=== PATIENT | female | born 1985 | race Two or more races ===

== ENCOUNTER 2024-11-07 19:12 | Emergency (ER) | payer MEDICAID, SELFPAY ==
[2024-11-07 20:07] VITALS: BP 104/63; PULSE 112; RESP 20; TEMP 37.9; O2SAT 96
--- NOTE | 2024-11-07 20:23 | PD.EDURI ---
Upper Respiratory Inf. RME/HPI General Chief Complaint: Flu Like Symptoms Stated Complaint: Cough X 2 days, fever, 16 weeks OB Time Seen by Provider: 11/07/24 20:15 Source: patient Arrival date/time: 11/07/24 19:12 38-year-old female approximately 16 weeks G6, P4 presents emergency department complaining of cough, fever, body aches, and headache for 2 days. Patient denies any dysuria, vaginal bleeding, abdominal pain, abdominal cramping, or low back pain. Mode of arrival: ambulatory Limitations: no limitations Related Data Previous Rx's ?Medication ?Instructions ?Recorded docusate sodium 100 mg capsule 100 mg PO QDAY #7 caps 04/11/22 (Colace) acetaminophen 500 mg capsule 500 mg PO Q6H PRN pain #30 caps 11/07/24 Allergies Allergy/AdvReac Type Severity Reaction Status Date / Time No Known Allergies Allergy Verified 04/09/22 05:42 Review of Systems Review of Systems Systems Reviewed: All systems reviewed, normal except as documented Constitutional Constitutional: Reports system reviewed and no additional complaints, except as documented, Reports body ache(s), Denies chills, Reports fever(s) and Reports headache(s) Eyes Eyes: Reports system reviewed and no additional complaints, except as documented and Denies change in vision ENT Ears, Nose, Mouth, and Throat: Reports system reviewed and no additional complaints, except as documented, Denies disequilibrium, Denies dizziness, Reports headache(s), Denies sore throat and Denies vertigo Cardiovascular Cardiovascular: Reports system reviewed and no additional complaints, except as documented, Denies chest pain and Denies dyspnea Respiratory Respiratory: Reports system reviewed and no additional complaints, except as documented, Denies chest congestion, Reports cough and Denies dyspnea Gastrointestinal Gastrointestinal: Reports system reviewed and no additional complaints, except as documented, Denies abdominal pain, Denies nausea and Denies vomiting Musculoskeletal Musculoskeletal: Reports system reviewed and no additional complaints, except as documented, Denies abnormal gait and Denies arthralgias Integumentary/Breasts Skin/Breast: Reports system reviewed and no additional complaints, except as documented, Denies erythema, Denies rash and Denies wounds Neurologic Neurologic: Reports system reviewed and no additional complaints, except as documented, Denies abnormal gait, Denies disequilibrium, Denies dizziness, Reports headache(s) and Denies vertigo Past Medical History Past Medical History NEUROLOGIC: Negative Neurological Disorders or Seizures CARDIAC: Negative Cardiac Disorders or Congestive Heart Failure RESPIRATORY: Negative Chronic Obstructive Pulmonary Disease (COPD) GASTROINTESTINAL: Negative Gastrointestinal Disorders or Hepatitis GENITOURINARY: Negative Genitourinary Disorders or Renal Disease REPRODUCTIVE: Positive Genital Herpes and Previous Pregnancies; Negative Endometriosis, Pelvic Inflammatory Disease or Uterine Prolapse MUSCULOSKELETAL: Negative Musculoskeletal Disorders ENDOCRINE: Negative Endocrine Disorders, Diabetes Mellitus Type 1 or Diabetes Mellitus Type 2 HEMATOLOGIC: Positive Blood Disorders and Anemia OTHER HISTORY: Positive Hospitalization and Blood Transfusions; Negative Autoimmune Disease, Down Syndrome, Developmental Delay, Shingles, Falls, Blood Transfusion Reaction, Anesthesia Reactions, Organ Transplant, Chemotherapy, Radiation Therapy, Hyperbaric Therapy, MRSA, VRSA, Vancomycin-Resistant Enterococci, Human Immunodeficiency Virus (HIV), Chicken Pox, Measles, Mumps, Rubella (Maori Measles), Pertussis, Clostridium Difficile or Cancer Family History FAMILY HISTORY: Positive Family Cardiac Disorders (mother- htn); Negative Family Psychiatric Problems, Family Respiratory Disorders, Family Gastrointestinal Problems, Family Cancer, Family Surgery or Family Anesthesia Reaction Surgical History SURGICAL: Negative Organ Transplant Social History SMOKING STATUS: Never smoker SECOND HAND EXPOSURE: Yes ED Exam General Limitations: Present no limitations General appearance: Present alert and in no apparent distress Head Head exam: Present atraumatic Eye Eye exam: Present normal appearance, PERRL and EOMI ENT ENT exam: Present normal exam, normal oropharynx and mucous membranes moist Neck Neck exam: Present normal inspection, full ROM and trachea midline Chest Chest inspection: Present normal inspection and symmetric chest wall rise Respiratory Respiratory exam: Present normal lung sounds bilaterally Cardiovascular Cardiovascular exam: Present regular rate, normal rhythm and normal heart sounds Abdominal Exam Abdominal exam: Present soft and normal bowel sounds Extremities Exam Extremities exam: Present normal inspection and full ROM Back Exam Back exam: Present normal inspection and full ROM Neurological Exam Neurological exam: Present alert, oriented X3 and CN II-XII intact Psychiatric Psychiatric exam: Present normal affect and normal mood Skin Skin exam: Present warm, dry, intact and normal color Course Quality Measures none Orders Category Date Time Status Acetaminophen Tab [Tylenol ES Tab] Med 11/07/24 20:24 Discontinued 1,000 mg PO X1 ONE Vital Signs Vital signs: Vital Signs Temperature 100.3 F 11/07/24 20:07 Pulse Rate 112 H 11/07/24 20:07 Respiratory Rate 20 11/07/24 20:07 Blood Pressure 104/63 11/07/24 20:07 Pulse Oximetry (%) 96 11/07/24 20:07 Oxygen Delivery Method Room Air 11/07/24 20:07 96% room air within normal limits Upper Respiratory Infection MDM Narrative MDM Narrative:: 38-year-old female approximately 16 weeks G6, P4 presents emergency department complaining of cough, fever, body aches, and headache for 2 days. Patient denies any dysuria, vaginal bleeding, abdominal pain, abdominal cramping, or low back pain. Patient appears nontoxic and is hemodynamically stable. No adventitious lung sounds on auscultation. Influenza positive. Patient instructed to drink plenty of fluids and get plenty of rest and take Tylenol as needed for fever or pain. Patient data External records reviewed:: [facility] previous records Clinical information provided by:: patient Social determinants that could affect healthcare access:: none Patient has the following chronic illnesses:: None How is presenting disease/condition affected by chronic disease/condition?: no chronic disease Evaluation data The following diagnostics were reviewed and interpreted by me:: lab results Lab and/or radiology exams considered but not ordered:: Ordered Interpretation Summary: Interpreted by me Medications / Prescriptions Medications or Prescriptions considered but not ordered:: Ordered Medication administrations:: Medication Administration History Discontinued Medications Acetaminophen (Acetaminophen 500 Mg Tablet) 1,000 mg PO X1 ONE Stop: 11/07/24 20:25 Last Admin: 11/07/24 20:28 Dose: 1,000 mg Documented By: KF Given Consultations Consultation(s) initiated? (list below): No Diagnosis Upper Respiratory Differential Diagnosis: upper respiratory infection, otitis media, sinusitis, viral infection, bronchitis, influenza and pharyngitis Most likely diagnosis given after review of the tests above:: Influenza Admission Indicated Admission indicated?: not indicated Admission Request Was there a request for admission?: No Disposition Plan Disposition Plan: Discharge Discharge Attestation Discharge Attestation: The patient and all family members were given an opportunity to ask questions and understood the discharge instructions. Discharge instructions specifically effects, indications for sooner follow up or return to the emergency department, and the expected course of current diagnosis. Patient condition: Stable Discharge Plan Plan Patient Disposition: HOME (Self Care) Disposition Comment: Stable Prescriptions/Referrals Prescriptions/Med Rec: New acetaminophen 500 mg capsule 500 mg PO Q6H PRN (Reason: pain) Qty: 30 0RF No Action docusate sodium [Colace] 100 mg capsule 100 mg PO QDAY Qty: 7 0RF Problem List Clinical Impression: Influenza Patient/Caregiver Discharge Instructions Discharge Activity: activity as tolerated Education Materials: ED Influenza (Adult) Additional Instructions: Drink plenty of fluids and get plenty of rest. Take Tylenol as needed for fever or pain. Close follow-up with primary care provider and COMMUNICATIONS ELECTRICIAN SUPERVISOR in 2 to 3 days. Return to emergency department for any worsening symptoms or as needed. Print Language: Uzbek Stand Alone Forms: Radha Award Info., Work/School Release, Patient Portal Info Letter PA/LOGISTICS ADMINISTRATOR Supervising Physician PA/LOGISTICS ADMINISTRATOR Supervising Physician: Dr. Rivas
[2024-11-07] MEDS: ACETAMINOPHEN 500 MG TABLET 1000 MG PO (20:28)
== END 2024-11-07 21:14 | disposition home or self-care (01) ==
LOC: SERX 21:11
PROVIDERS: Emergency Provider Emergency Medicine
DX: O99.512 Diseases of the respiratory system complicating pregnancy, second trimester (principal); J11.1 Influenza due to unidentified influenza virus with other respiratory manifestations; Z3A.16 16 weeks gestation of pregnancy
CPT/HCPCS: 99282; A9270

== ENCOUNTER 2024-11-29 13:00 | Outpatient (AMB) | payer MEDICAID, SELFPAY ==
--- NOTE | 2024-11-29 13:11 | OBCLNT_ITS ---
Vital Signs 11/29/24 13:12 Height 1.7 m Height Method Stated Weight 60.328 kg Weight Measurement Method Standing Scale BMI 20.8 BP 108/77 Blood Pressure Source Automatic Cuff Blood Pressure Location Left Upper Arm Position Sitting Respiration 16 Pulse 98 Pulse Source Monitor Temp 98.5 F Temp Source Oral Pulse Oximetry (%) 98 Oxygen Delivery Method Room Air Allergies/Home Meds Allergies & Medications Allergies No Known Allergies Allergy (Verified 11/29/24 13:15) Medication Reconciliation dextromethorphan HBr 15 mg/5 mL oral syrup 15 mg (5 mL) PO Q8H PRN cough #118 mL 11/29/24 [Rx] Intake Visit Data Collection New Patient or Established: Established Patient (seen at [facility] within 3 years) Reason for Visit:: care Seen by Clinical Staff ONLY (RN/MA): No Chaser Apprentice Required: No Do You Feel Safe at Home: Yes Authorities Contacted: N/A PCP or OBGYN visit in last 3 months: No Hx Now: Yes Are you currently on any form of Control: No Last menstrual period: 07/06/24 Pain Present Currently: No Pain Scale Used: Suarez-Moreno/Numerical Pain scale:: 0 Smoking Status Smoking Status: Never smoker Questionnaires Covid-19 Vaccine Questionnaire Has patient been vacinated for Covid-19 Have you been vacinated for Covid-19: No PHQ-9 PHQ-2 Over the last 2 weeks, how often have you been bothered by any of the following problems? 1. Little interest or pleasure in doing things: not at all 2. Feeling down, depressed, or hopeless: not at all Total score: 0 PHQ-9 3. Trouble falling or staying asleep, or sleeping too much: Not at all 4. Feeling tired or having little energy: Not at all 5. Poor appetite or overeating: Not at all 6. Feeling bad about yourself - or that you are a failure or have let yourself or your family down: Not at all 7. Trouble concentrating on things, such as reading the newspaper or watching television: Not at all 8. Moving or speaking so slowly that other people could have noticed? - Or the opposite - being so fidgety or restless that you have been moving around a lot more than usual: not at all 9. Thoughts that you would be better off or of hurting yourself in some way: Not at all Total score: 0 Source: Developed by Drs. John Villanueva, Tessa Boyd, Jorge Charles and colleagues, with an educational sumi from [employer]. 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 Father the baby is present today. Tobacco History Smoking Status: Never smoker Second Hand Smoke Exposure: Yes Alcohol History Alcohol Intake: Never Substance Use History Substance Use: no Domestic Abuse History Do You Feel Safe at Home: Yes Past Medical History Past Medical History Have you ever been diagnosed with any of the following: Neurological Problems Meningitis: No Seizures: No Epilepsy: No Morse's Palsy: No Migraine: No Cardiology Problems Cardiac Arrhythmia: No Heart Murmur: No Hypercholesterolemia: No Rheumatic Fever: No Deep Vein Thrombosis: No Hypertension: No Respiratory Problems Asthma: No Tuberculosis: No Pulmonary Embolism: No Sleep Apnea: No Cough: Yes (Patient was recently diagnosed with influenza 2 weeks ago in the ER) Smoking: No Stomache/Intestinal Problems Hepatitis: No Celiac Disease: No Gall Bladder Disease: No Colitis: No Diverticulosis: No Gastroesophageal Reflux Disease: No Obesity: No Genital/Urinary Problems Renal Disease: No Kidney Stones: No Reproductive Problems Breast Cancer: No Endometriosis: No Fibroids: No Genital Herpes: Yes Gonorrhea: No Pelvic Inflammatory Disease: No Polycystic Ovarian Syndrome: No Previous Pregnancies: Yes (Previous x 4, one D& E, one D&C) Syphilis: No Uterine Prolapse: No Musculoskeletal Problems Arthritis: No Rheumatoid Arthritis: No Scoliosis: No Fibromyalgia: No Head,Eye,Nose,Throat Problems Glaucoma: No Endocrine Problems Diabetes Mellitus Type 2: No Hyperthyroidism: No Hypothyroidism: No Thyroid Cancer: No Systemic Lupus Erythematosus: No Blood Problems Anemia: Yes Clotting Problems: No Psychologic Problems Depression: Yes Anxiety: Yes Attention Deficit Disorder: No Attention Deficit Hyperactivity Disorder: No Other Problems Hospitalization: Yes (For x 4 recently in the ER for influenza) Autoimmune Disease: No Down Syndrome: No Shingles: No Blood Transfusions: Yes Blood Transfusion Reaction: No Anesthesia Reactions: No Surgical History Appendectomy: No Bariatric Surgery: No Breast Surgery: No Cholecystectomy: No Additional Surgical History: 4 C Sections, 1 D& E, 1 D&C History of Present Illness HPI Narrative The patient is a 39-year-old -1-1-4 who presents with an unknown due date as a new OB. Her last menstrual period was July 06, 2024 which would make the patient approximately 21 weeks today with a due date of 04/11/2025. patient states she has been unable to get into get care. She presents with her with the father of the baby Chapo. 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 She has had a history of x 4 in the past the last one was performed here in [place] in 2021. I did look at the op report and patient had a a lot of scar tissue present and a thin lower uterine segment. EBL was 1000 cc. Patient is denying any vaginal bleeding she is tired she feels like she looks large for gestational age and she is reporting that she was in the ER with influenza recently and that she is still really tired and still has a cough she is reporting some left tooth soreness. OB Initial Visit Menstrual History Menstrual reliability: definite Flow: normal Menstrual regularity: regular Monthly: Yes Age at menarche: 13 On control pills at conception: No Date of positive home test: 08/25/24 Associated symptoms (LMP): Denies amenorrhea, nausea, vomiting, fatigue, breast tenderness, urinary frequency, irritability, bloating or other OB History : 6 Para: 3 Hx # Pregnancies: 1 Hx Total # of Abortions (Spontaneous & Elective): 1 # of Living Children: 4 Delivery History 1st : date: 02/13/12 sex: female Gestational age at delivery (weeks): 40 Delivery type: weight (lbs): 4535.924 g Delivery complications: C Section 2nd : date: 06/29/13 sex: female Gestational age at delivery (weeks): 36 Delivery type: weight (lbs): 2267.962 g Delivery complications: labor 3rd : date: 06/20/14 sex: female Gestational age at delivery (weeks): 40 Delivery type: weight (lbs): 3628.739 g Delivery complications: none 4th : date: 04/09/22 sex: female Gestational age at delivery (weeks): 40 Delivery type: weight (lbs): 2721.554 g Delivery complications: Thin lower uterine segment, a lot of scar tissue present Additional comments: At some point patient had a D and E I think it was in 2006 for a baby that was deformed. No records are available Infection History & Risk Evaluation History of STDs: none Genetic Screening & History Genetic Screening/Teratology Counseling - Includes patient, baby's father, or anyone in either family with: 1. Patient's age 35 years or older as of estimated date of delivery: No 2. Thalassemia (Greek, Divehi, Mediterranean, or Background); MCV less than 80: No 3. Neural Tube Defect (Meningomyelocele, Spina Bifida, or Anencephaly): No 4. Congenital Heart Defect: No 5. Down Syndrome: No 6. Dev-Sachs (Ashkenazi Rastafari, Cajun, [place]anese [place]): No 7. Racquel Disease (Ashkenazi Rastafari): No 8. Familial Dysautonomia (Ashkenazi Rastafari): No 9. Sickle Cell Disease or Trait (): No 10. Hemophilia or other blood disorders: No 11. Muscular Dystrophy: No 12. Cystic Fibrosis: No 13. [place] Chorea: No 14. Mental Retardation/Autism: No 15. Other inherited genetic or chromosomal disorder: No 16. Maternal Metabolic Disorder (EG,TYPE 1 Diabetes, PKU): No 17. Patient or baby's father had a child with defects not listed above: No 18. Recurrent loss or a stillbirth: No 19. Medications (including supplements, vitamins, herbs or otc drugs)/illicit/recreational drugs/alcohol since last menstrual period: No 20. Any other: No Comments/Counseling: Offered level 2 ultrasound, refer to MFM, NIPT testing is normal. Infection History 1. Live with someone with TB or exposed to TB: No 2. Rash or viral illness since last menstrual period: No 3. Hepatitis B,C: No Other (see comments) Source: [employer] OB Flowsheet OB Flowsheet Initial Weight: Not Recorded Date -?-?-?-?-?-?-?-?-?-?-?-?- EGA Weight Edema CTX Effacement BP Fundal ht Pres Dilation Effacement Station Visit Note Alb Glu FHR Mov 11/29/24 -?-?-?-?-?-?-?-?-?-?-?-?- 21w 0d 60.328 kg 108/77 140 active Review of Systems Constitutional Constitutional: Denies fatigue, Reports lethargy and Reports malaise Comments: Patient reports a cough feeling extremely tired and feels bigger and more than she should be. ENT Comments: Patient reported reports one of her upper wisdom teeth on her left side is sore and wants to see a dentist. Respiratory Respiratory: Reports cough Comments: Patient was diagnosed with influenza at the beginning of November. Gastrointestinal Gastrointestinal: Denies bloating, Denies nausea and Denies vomiting Genitourinary Genitourinary: Denies amenorrhea and Denies urinary frequency Psychiatric Psychiatric: Denies irritability Endocrine Endocrine: Denies fatigue Exam General Limitations: no limitations General Appearance: alert, comfortable, cooperative and other (Appears pale) Head Head exam: atraumatic, normocephalic and normal inspection Resp Respiratory exam: Present normal lung sounds bilaterally Card Cardiovascular exam: Present regular rate, normal rhythm and normal heart sounds Abdominal Abdominal exam: Present soft, normal bowel sounds and incision (Well-healed Pfannenstiel scar) Bimanual exam: Present uterine enlargement (23 weeks size uterus based on fundal height) Exp OB exam: Present deferred Psych Psychiatric exam: Present normal affect and normal mood Skin Skin exam: Present warm, dry, intact and normal color Assessment & Plan Diagnosis / Problem List (1) Twin : Status: Acute (2) Advanced maternal age (AMA) in : Status: Acute (3) Previous section: Status: Acute Additional Plan Patient is a 39-year-old -1-1-4 with a history of x 4 in the past a D and E for some type of genetic problem of a baby. She also has twins and has had no care and is already at least 21 to 22 weeks. She will be transferred out to a maternal- medicine provider at this point secondary to x 5, AMA, difficult last time and twin . We will refer her onto [place] to the [facility] service. Follow Up: 4 Weeks Office Procedures OB Clinic LOC & Office Proc's Nursing/Assessment Patient Status: Established Patient OB Clinic Nursing Assessment: Medication Reconciliation, Update PMH in EMR and Vital Signs OB Clinic Coordination of Care: Complex Care and Chronic Disease 1-5, Consent,records obtained, informed consent, Education Simp Pt/Fam, Lab and Imaging orders, Results/Orders obtained and Staff clarify orders Special Needs: Heart tones Established Patient Charge Established Patient Point Assignment: 135 Established Patient Point Charge: EP Level 4 (120-155) OB Ultrasound OB Ultrasound Indication(s):: Size and dates. Ultrasound technique:: transvaginal Gestational sac assessment: Presence, location, size, shape:: Twin intrauterine seen. By head circumference 21 weeks. heart tones x 2 noted.
[2024-11-29 13:12] VITALS: BP 108/77; PULSE 98; RESP 16; TEMP 36.9; O2SAT 98; BMI 20.8
== END 2024-11-29 13:45 | disposition home or self-care (01) ==
LOC: HODSOBC 13:00
PROVIDERS: Supervising Provider Obstetrics & Gynecology; Visit Provider Obstetrics & Gynecology
DX: O09.522 Supervision of elderly multigravida, second trimester (principal); O09.892 Supervision of other high risk pregnancies, second trimester; O30.002 Twin pregnancy, unspecified number of placenta and unspecified number of amniotic sacs, second trimester; O09.292 Supervision of pregnancy with other poor reproductive or obstetric history, second trimester; O34.219 Maternal care for unspecified type scar from previous cesarean delivery; Z3A.21 21 weeks gestation of pregnancy
CPT/HCPCS: 76817; 99214; G0463

== ENCOUNTER 2024-12-31 11:04 | Outpatient (AMB) | payer MEDICAID, SELFPAY ==
[2024-12-31 11:20] VITALS: BP 110/77; PULSE 106; RESP 18; TEMP 36.8; O2SAT 98; BMI 22.6
--- NOTE | 2024-12-31 11:20 | AMB.OBVISIT ---
Vital Signs 12/31/24 11:20 Height 1.7 m Height Method Stated Weight 65.431 kg Weight Measurement Method Standing Scale BMI 22.6 BP 110/77 Blood Pressure Source Automatic Cuff Blood Pressure Location Left Upper Arm Position Sitting Respiration 18 Pulse 106 H Pulse Source Monitor Temp 98.2 F Temp Source Oral Pulse Oximetry (%) 98 Oxygen Delivery Method Room Air Allergies/Home Meds Allergies & Medications Allergies No Known Allergies Allergy (Verified 12/31/24 11:21) Medication Reconciliation dextromethorphan HBr 15 mg/5 mL oral syrup 15 mg (5 mL) PO Q8H PRN cough #118 mL 11/29/24 [Rx Confirmed 12/31/24] Intake Visit Data Collection New Patient or Established: Established Patient (seen at [facility] within 3 years) Reason for Visit:: care Seen by Clinical Staff ONLY (RN/MA): No Facepiece Line Supervisor Required: No Do You Feel Safe at Home: Yes Authorities Contacted: N/A PCP or OBGYN visit in last 3 months: Yes Date of Last PCP or OBGYN visit: 11/29/24 Hx Now: Yes Are you currently on any form of Control: No Last menstrual period: 07/06/24 Pain Present Currently: No Pain Scale Used: Suarez-Moreno/Numerical Pain scale:: 0 Smoking Status Smoking Status: Never smoker Questionnaires Covid-19 Vaccine Questionnaire Has patient been vacinated for Covid-19 Have you been vacinated for Covid-19: Yes PHQ-9 PHQ-2 Over the last 2 weeks, how often have you been bothered by any of the following problems? 1. Little interest or pleasure in doing things: not at all 2. Feeling down, depressed, or hopeless: not at all Total score: 0 PHQ-9 3. Trouble falling or staying asleep, or sleeping too much: Not at all 4. Feeling tired or having little energy: Not at all 5. Poor appetite or overeating: Not at all 6. Feeling bad about yourself - or that you are a failure or have let yourself or your family down: Not at all 7. Trouble concentrating on things, such as reading the newspaper or watching television: Not at all 8. Moving or speaking so slowly that other people could have noticed? - Or the opposite - being so fidgety or restless that you have been moving around a lot more than usual: not at all 9. Thoughts that you would be better off or of hurting yourself in some way: Not at all Total score: 0 Source: Developed by Drs. John Villanueva, Tessa Boyd, Jorge Charles and colleagues, with an educational sumi from [employer]. 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 Father the baby is present today. Tobacco History Smoking Status: Never smoker Second Hand Smoke Exposure: Yes Alcohol History Alcohol Intake: Never Substance Use History Substance Use: no Domestic Abuse History Do You Feel Safe at Home: Yes Past Medical History Past Medical History Have you ever been diagnosed with any of the following: Neurological Problems Cerebrovascular Accident (CVA): No Transient Ischemic Attacks (TIA): No Parkinson's Disease: No Brain Tumor: No Meningitis: No Seizures: No Epilepsy: No Multiple Sclerosis: No Cerebral Palsy: No Morse's Palsy: No Migraine: No Cardiology Problems Myocardial Infarction: No Cardiac Arrhythmia: No Atrial Fibrillation: No Angina: No Heart Murmur: No Hypercholesterolemia: No Congestive Heart Failure: No Rheumatic Fever: No Deep Vein Thrombosis: No Hypertension: No Respiratory Problems Chronic Obstructive Pulmonary Disease (COPD): No Asthma: No Bronchitis: No Pneumonia: No Tuberculosis: No Pulmonary Embolism: No Sleep Apnea: No Cough: Yes (Patient was recently diagnosed with influenza 2 weeks ago in the ER) Smoking: No Stomache/Intestinal Problems Hepatitis: No Celiac Disease: No Gall Bladder Disease: No Colitis: No Diverticulosis: No Gastroesophageal Reflux Disease: No Obesity: No Genital/Urinary Problems Renal Disease: No Kidney Stones: No Reproductive Problems Breast Cancer: No Endometriosis: No Fibroids: No Genital Herpes: Yes Gonorrhea: No Pelvic Inflammatory Disease: No Polycystic Ovarian Syndrome: No Previous Pregnancies: Yes (Previous x 4, one D& E, one D&C) Syphilis: No Uterine Prolapse: No Musculoskeletal Problems Arthritis: No Rheumatoid Arthritis: No Scoliosis: No Fibromyalgia: No Head,Eye,Nose,Throat Problems Glaucoma: No Endocrine Problems Diabetes Mellitus Type 1: No Diabetes Mellitus Type 2: No Hyperthyroidism: No Hypothyroidism: No Thyroid Cancer: No Systemic Lupus Erythematosus: No Blood Problems Anemia: Yes Clotting Problems: No Psychologic Problems Depression: Yes Anxiety: Yes Attention Deficit Disorder: No Attention Deficit Hyperactivity Disorder: No Other Problems Hospitalization: Yes (For x 4 recently in the ER for influenza) Down Syndrome: No Developmental Delay: No Shingles: No Falls: No Blood Transfusions: Yes Blood Transfusion Reaction: No Anesthesia Reactions: No Organ Transplant: No Chemotherapy: No Radiation Therapy: No Hyperbaric Therapy: No MRSA: No VRSA: No Vancomycin-Resistant Enterococci: No Human Immunodeficiency Virus (HIV): No Chicken Pox: No Measles: No Mumps: No Rubella (K[place] Measles): No Pertussis: No Clostridium Difficile: No Cancer: No Surgical History Appendectomy: No Bariatric Surgery: No Breast Surgery: No Cholecystectomy: No Visit RODNEY Calculator Estimated Delivery Date Method Current WG Current Estimate 04/11/25 Ultrasound #1 25w 4d Other Estimates 04/12/25 LMP (Certain) 25w 3d Expected Delivery Route/Plan Patient is very high risk. She has a history of x 4 . The last CS revealed a large amount of scar tissue present and the EBL was 1000 cc. She is this time with twins and it will be #5. Specific Issue/Plans Patient signed tubal ligation papers. She will be referred out for all remainder of her care to a high risk physician in [place]. Consult is pending at this time. Initial Weight: Not Recorded Date <del>?</del> EGA Weight Edema CTX Effacement BP Fundal ht Pres Dilation Effacement Station Visit Note Alb Glu FHR Mov 11/29/24 <del>?</del> 21w 0d 60.328 kg 108/77 140 active 12/31/24 <del>?</del> 25w 4d 65.431 kg 110/77 30 140 active Notes Visit Date: 12/31/24 Last Updated by: Tori James (OB Clinic)MD Patient has a twin Di amniotic suspected dichorionic . Its natural twins. They are both moving well. Both have heartbeats today. They are both in a breech presentation. Patient has severe varicosities of her right lower extremity with pain. I will order a compression stocking for her right leg. Patient is still waiting on a referral to the [facility] for transfer of care. She has not had an ultrasound yet as there was a problem with her Medi-Gurpreet. Patient is dated by my 20-week ultrasound. She has no complaints today besides leg swelling and pain due to varicosities. She is off work on bedrest. She is on pelvic rest. She is extremely high risk due to x 4 and twin intrauterine gestation. She did sign tubal ligation papers today and has a copy. Results Objective Imaging: Transabdominal ultrasound was reviewed performed today for viability in a twin gestation. Babies are breech breech. One is a male. I Could not tell the gender of the other baby. They are both moving and have heartbeats of 140 and 160. Assessment & Plan Diagnosis / Problem List (1) Advanced maternal age (AMA) in : Status: Acute Plan: Continue baby aspirin (2) Twin : Status: Acute Qualifiers: Multiple gestation type: dichorionic and diamniotic Trimester: second trimester Qualified Code(s): O30.042 - Twin , dichorionic/diamniotic, second trimester Plan: For high risk ultrasounds and transfer of care (3) : Status: Acute Qualifiers: Weeks of gestation: 25 weeks Qualified Code(s): Z3A.25 - 25 weeks gestation of (4) Previous section: Status: Acute Plan: Previous x 4, history of thin lower uterine segment and scar tissue. Twin gestation. Consider scheduling at 37 weeks. Patient desires tubal ligation papers were signed today and copy was given to patient. Additional Plan Patient will be transferred out to a maternal- medicine specialist for care of the remainder of her due to her high risk conditions including AMA, twin intrauterine gestation, previous x 4. Follow Up: 2 Weeks Office Procedures OB Clinic LOC & Office Proc's Nursing/Assessment Patient Status: Established Patient OB Clinic Nursing Assessment: Medication Reconciliation, Update PMH in EMR and Vital Signs OB Clinic Coordination of Care: Complex Care and Chronic Disease 1-5, Consent,records obtained, informed consent, Education Simp Pt/Fam and Staff clarify orders Special Needs: Heart tones Established Patient Charge Established Patient Point Assignment: 115 Established Patient Point Charge: EP Level 3 (80-115)
== END 2024-12-31 12:07 | disposition home or self-care (01) ==
LOC: HODSOBC 11:04
PROVIDERS: Supervising Provider Obstetrics & Gynecology; Visit Provider Obstetrics & Gynecology
DX: O09.522 Supervision of elderly multigravida, second trimester (principal); O09.892 Supervision of other high risk pregnancies, second trimester; O30.042 Twin pregnancy, dichorionic/diamniotic, second trimester; O32.1XX1 Maternal care for breech presentation, fetus 1; O32.1XX2 Maternal care for breech presentation, fetus 2; O09.292 Supervision of pregnancy with other poor reproductive or obstetric history, second trimester; O34.211 Maternal care for low transverse scar from previous cesarean delivery; O22.02 Varicose veins of lower extremity in pregnancy, second trimester; I83.811 Varicose veins of right lower extremity with pain; I83.891 Varicose veins of right lower extremity with other complications; Z3A.25 25 weeks gestation of pregnancy
CPT/HCPCS: 99213; G0463

== ENCOUNTER 2025-01-13 17:07 | Observation (INO) | payer MEDICAID, SELFPAY ==
[2025-01-13] VITALS (43 sets, daily range): BP systolic 100–129; BP diastolic 55–72; PULSE 79–107; RESP 16–100; TEMP -12.6–37; O2SAT 99–100; BMI 23.2
--- NOTE | 2025-01-13 18:03 | XR_ITS ---
Examination: OB Transvaginal ultrasound of the pelvis, Limited Technique: Transvaginal sonographic images pelvis performed using luz scale imaging Exam date and time: January 13, 2025 2146 hrs. Indications: Back pain beginning 2 days ago Findings: Cervix 7.0 cm closed Impression: Cervix 7.0 cm closed
[2025-01-13 18:13] LABS: Collection Type, Urine Clean Catch
[2025-01-13] MEDS: RINGERS LACTATED 1000 ML 1,000 ML 999 ML IV (18:20)
[2025-01-13 18:57] LABS: Bacteria,Urine 1+; Bilirubin,Urine Negative (Negative); Blood,Urine Negative (Negative); Clarity,Urine Clear (Clear/Hazy); Color,Urine Yellow (Lt Yel-Yel); Glucose, Urine Negative (Negative); Ketones,Urine Negative (Negative); Leukocyte Esterase,Urine Negative (Negative); Nitrite,Urine Negative (Negative); PH,Urine 6.5 (5.0-7.0); Protein,Urine Trace (Neg - Trace); RBC,Urine 2 /hpf (0-3); Specific Gravity,Urine 1.023 (1.001-1.035); Squamous Epithelial Cell,Urine 2 /hpf (0-5); Urobilinogen,Urine Negative mg/dL (0.0-1.0); WBC,Urine 2 /hpf (0-5)
[2025-01-13 18:58] LABS: Culture Indicated,Urine Yes
[2025-01-13] MEDS: TERBUTALINE SULF INJ 1 MG/ML VIAL 0.25 MG SC (19:54)
[2025-01-13] MEDS: ACETAMINOPHEN 325 MG TABLET 650 MG PO (20:35)
[2025-01-13 20:50] LABS: Basophils % (Auto) 0 % (0-2.5); Eosinophils # (Auto) 0.1 Thou/mm3 (0.0-0.5); Eosinophils % (Auto) 1 % (0-10); Hematocrit 28.9 % (36.0-46.0); Hemoglobin 8.9 g/dL (12.0-16.0); Immature Granulocytes % (Auto) 1 % (0-0); Immature Granulocytes Auto 0.07 Thou/mm3 (0.00-0.00); Lymphocytes # (Auto) 2.2 Thou/mm3 (1.0-4.8); Lymphocytes % (Auto) 28 % (10-50); Mean Corpuscular HGB Conc 30.8 g/dl (31.0-37.0); Mean Corpuscular Hemoglobin 22.8 pg (25.0-35.0); Mean Corpuscular Volume 74 fL (80-100); Monocytes # (Auto) 0.6 Thou/mm3 (0.0-0.8); Monocytes % (Auto) 8 % (0-12); Neutrophils # (Auto) 5.1 Thou/mm3 (1.8-7.7); Neutrophils % (Auto) 63 % (37-80); Nucleated Red Blood Cell % 0 /100 WBC (0); Platelet Count 167 Thou/mm3 (140-440); RDW Standard Deviation 45.6 fL (36.4-46.3); White Blood Count 8.1 Thou/mm3 (3.6-11.0)
--- NOTE | 2025-01-13 21:45 | ESPR_ITS ---
Documentation for date of: 01/13/25 OB Labor Progress Note Status status: Category l Assessment and Plan Comments: Triage Note Giovanna is a 39yo with di-di twins at 26+wk presenting to L&D for LBP. Also notes a bit of cramping down near her pubic bone. But back pain is her main concern- she notes it is low on her back, has been getting worse such that she is having a harder time getting around with her 2 year old now. Not feeling ctx. No lof, no vaginal bleeding. Normal movement x2. When discussing her HSV hx, she notes occasional outbreaks and is running low on valtrex to treat recurrences. Current : This complicated by LTC at 21 weeks, di-di twins Previous pregnancies: Hx of section x4, last op report notes thin VADIM and significant scar tissue. She was referred by Dr. James to higher level of care for further OB visits given such high risk. 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 Vitals wnl, afebrile General: well developed, well nourished, no acute distress, conversant Cardiac: normal heart rate Lungs: breathing without distress Abdomen: soft, gravid, non-tender, no rebound or guarding Extremities: no pain with palpation of calves SCE: closed/thick/high NST: Reassuring for gestational age x2, +accels x2, no decels x2, mod jayne x2 [place]: ctx q3-5 min that resolved after IV fluids and terbutaline Labs: Urinalysis: 2 WBC, 2 RBC, 2 squam, 1+ bacteria, negative nitrite, negative LE, 1.023 spec grav CBC: WBC 8.1, Hgb 8.9 Vaginitis panel: negative for robert, BV, trichomonas Ultrasound: Examination: OB Transvaginal ultrasound of the pelvis, Limited Technique: Transvaginal sonographic images pelvis performed using luz scale imaging Exam date and time: January 13, 2025 2146 hrs. Indications: Back pain beginning 2 days ago Findings: Cervix 7.0 cm closed Impression: Cervix 7.0 cm closed Assessment: Giovanna is a 39yo with di-di twins at 26+wk with no evidence of labor based on cervical length of 7cm and cessation of ctx after IVF and terbutaline. No evidence of pyelonephritis- afebrile and WBC 8.1. Vitals wnl, benign exam. Reassuring status x2. Plan: -Discussed findings and diagnosis with patient, answered all questions to her apparent satisfaction -Follow up 01/[address] James as scheduled -Rx valtrex 1000mg PO QD x5 days at onset of HSV outbreaks -Reflex ucx pending -Discussed return precautions -Safe for discharge home at this time Tenisha Sykes MD
[2025-01-14 08:28] LABS: BVAG Candida Negative (Negative); Bacterial Vaginosis Markers Negative (Negative); Candida glabrata Negative (Negative); Candida krusei PCR Negative (Negative); Trichomonas Negative (Negative)
== END 2025-01-13 23:05 | disposition home or self-care (01) ==
PROVIDERS: Admitting Provider Obstetrics & Gynecology; Visit Provider Obstetrics & Gynecology
DX: O26.892 Other specified pregnancy related conditions, second trimester (principal); M54.50 Low back pain, unspecified; R10.30 Lower abdominal pain, unspecified; O30.042 Twin pregnancy, dichorionic/diamniotic, second trimester; Z3A.26 26 weeks gestation of pregnancy
CPT/HCPCS: 36415; 59025; 59899; 76817; 81001; 81514; 85025; 87086; J3105; J7120; A9270

== ENCOUNTER 2025-01-17 15:11 | Observation (INO) | payer MEDICAID, SELFPAY ==
[2025-01-17] VITALS (20 sets, daily range): BP systolic 100–115; BP diastolic 64–69; PULSE 95–121; RESP 18–99; TEMP 36.9; O2SAT 100; BMI 23.5
[2025-01-17] MEDS: RINGERS LACTATED 1000 ML 1,000 ML 999 ML IV (17:10)
--- NOTE | 2025-01-17 17:32 | XR_ITS ---
Examination: Complete OB ultrasound greater than 14 weeks, twin A Date and time of exam: January 17, 2025 at 1747 Indications: Lower back pain pelvic pain one week, clinical diagnosis placenta accreta Findings: Viable intrauterine gestation, twin A, transverse presentation Cardiac motion 140 BPM Placenta anterior fundal grade 2, normal Umbilical cord insertion 3 vessel seen Amniotic fluid index 10.1 cm Cervix 4.8 cm Ovaries obscured by bowel gas. Composite estimated gestational age based on BPD, head circumference, abdominal circumference, femur length is 29 weeks 0 days Estimated weight 1271 g. Survey of intracranial anatomy, spinal anatomy, abdominal anatomy, four-chamber heart performed with no abnormalities identified. Impression: Viable twin A transverse presentation. Placenta anterior fundal grade 2, normal Examination: Complete OB ultrasound greater than 14 weeks, twin B Date and time of exam: January 17, 2025 at 1747 hrs. Indications: Pelvic pain one week Findings: Viable intrauterine gestation, twin B presentation transverse Cardiac motion 155 BPM Placenta anterior grade 2, normal Umbilical cord insertion 3 vessel seen spine maternal right Cervix 4.8 cm Ovaries obscured by bowel gas. Composite estimated gestational age based on BPD, head circumference, abdominal circumference, femur length is 29 weeks 1 day Estimated weight 1306 g. Survey of intracranial anatomy, spinal anatomy, abdominal anatomy, four-chamber heart performed with no abnormalities identified. Viable intrauterine gestation, twin B, transverse presentation Placenta anterior grade 2 normal.
[2025-01-17] MEDS: TERBUTALINE SULF INJ 1 MG/ML VIAL 0.25 MG SC ×2 (17:39→18:39)
[2025-01-17 17:41] LABS: Collection Type, Urine Clean Catch; RBC,Urine 0 /hpf (0-3)
[2025-01-17 18:11] LABS: Amorphous Crystals,Urine Present (Absent); Bacteria,Urine 4+; Bilirubin,Urine Negative (Negative); Blood,Urine Negative (Negative); Clarity,Urine Turbid (Clear/Hazy); Color,Urine Colorless (Lt Yel-Yel); Glucose, Urine Negative (Negative); Ketones,Urine Negative (Negative); Leukocyte Esterase,Urine Negative (Negative); Nitrite,Urine Negative (Negative); PH,Urine 6.5 (5.0-7.0); Protein,Urine Negative (Neg - Trace); Specific Gravity,Urine 1.005 (1.001-1.035); Squamous Epithelial Cell,Urine 3 /hpf (0-5); Urobilinogen,Urine Negative mg/dL (0.0-1.0); WBC,Urine 7 /hpf (0-5)
[2025-01-17 18:27] LABS: FFN Specimen Descripton Clr Colrless Aqueous; Fetal Fibronectin Negative (Negative)
[2025-01-17] MEDS: cefTRIAXone/D5w 2gm 2 GM/50 ML BAG IV (18:39)
== END 2025-01-17 20:33 | disposition home or self-care (01) ==
PROVIDERS: Admitting Provider Specialist; Visit Provider Specialist
DX: O26.892 Other specified pregnancy related conditions, second trimester (principal); Z3A.26 26 weeks gestation of pregnancy; R25.2 Cramp and spasm; O32.2XX1 Maternal care for transverse and oblique lie, fetus 1; O30.003 Twin pregnancy, unspecified number of placenta and unspecified number of amniotic sacs, third trimester
CPT/HCPCS: 59899; 76805; 76810; 81001; 82731; 87086; 96372; J0696; J3105; J7120

== ENCOUNTER 2025-01-21 13:08 | Outpatient (AMB) | payer MEDICAID, SELFPAY ==
[2025-01-21 13:07] VITALS: BP 109/72; PULSE 98; RESP 18; TEMP 36.6; O2SAT 98; BMI 23.8
--- NOTE | 2025-01-21 13:07 | AMB.OBVISIT ---
Vital Signs 01/21/25 13:07 Height 1.7 m Height Method Stated Weight 68.946 kg Weight Measurement Method Standing Scale BMI 23.8 BP 109/72 Blood Pressure Source Automatic Cuff Blood Pressure Location Left Upper Arm Position Sitting Respiration 18 Pulse 98 Pulse Source Monitor Temp 98 F Temp Source Oral Pulse Oximetry (%) 98 Oxygen Delivery Method Room Air Allergies/Home Meds Allergies & Medications Allergies No Known Allergies Allergy (Verified 01/21/25 13:12) Medication Reconciliation dextromethorphan HBr 15 mg/5 mL oral syrup 15 mg (5 mL) PO Q8H PRN cough #118 mL 11/29/24 [Rx Confirmed 01/21/25] comp.stocking,thigh,long,small #12 ea 12/31/24 [Rx Confirmed 01/21/25] valacyclovir 1 gram tablet (Valtrex) 1,000 mg PO QDAY PRN outbreak #30 tabs 01/13/25 [Rx Confirmed 01/21/25] acetaminophen 500 mg tablet 500 mg PO Q6H PRN pain 01/17/25 [History Confirmed 01/21/25] vits no.130-ferrous fum 27 mg iron-folic acid 800 mcg tablet ( Vitamin) 1 tab PO QDAY 01/17/25 [History Confirmed 01/21/25] Intake Visit Data Collection New Patient or Established: Established Patient (seen at [facility] within 3 years) Reason for Visit:: CARE Seen by Clinical Staff ONLY (RN/MA): No Agricultural Engineering Technician Required: No Do You Feel Safe at Home: Yes Authorities Contacted: N/A PCP or OBGYN visit in last 3 months: Yes Hx Now: Yes Are you currently on any form of Control: No Pain Present Currently: No Pain Scale Used: Usarez-Moreno/Numerical Pain scale:: 0 Smoking Status Smoking Status: Never smoker Questionnaires Covid-19 Vaccine Questionnaire Has patient been vacinated for Covid-19 Have you been vacinated for Covid-19: No PHQ-9 PHQ-2 Over the last 2 weeks, how often have you been bothered by any of the following problems? 1. Little interest or pleasure in doing things: not at all 2. Feeling down, depressed, or hopeless: not at all Total score: 0 PHQ-9 3. Trouble falling or staying asleep, or sleeping too much: Not at all 4. Feeling tired or having little energy: Not at all 5. Poor appetite or overeating: Not at all 6. Feeling bad about yourself - or that you are a failure or have let yourself or your family down: Not at all 7. Trouble concentrating on things, such as reading the newspaper or watching television: Not at all 8. Moving or speaking so slowly that other people could have noticed? - Or the opposite - being so fidgety or restless that you have been moving around a lot more than usual: not at all 9. Thoughts that you would be better off or of hurting yourself in some way: Not at all Total score: 0 Source: Developed by Drs. John Villanueva, Tessa Boyd, Jorge Charles and colleagues, with an educational sumi from [employer]. 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 Father the baby is present today. Tobacco History Smoking Status: Never smoker Second Hand Smoke Exposure: Yes Alcohol History Alcohol Intake: Never Substance Use History Substance Use: no Domestic Abuse History Do You Feel Safe at Home: Yes Past Medical History Past Medical History Have you ever been diagnosed with any of the following: Neurological Problems Cerebrovascular Accident (CVA): No Transient Ischemic Attacks (TIA): No Parkinson's Disease: No Brain Tumor: No Meningitis: No Seizures: No Epilepsy: No Multiple Sclerosis: No Cerebral Palsy: No Morse's Palsy: No Migraine: No Cardiology Problems Myocardial Infarction: No Cardiac Arrhythmia: No Atrial Fibrillation: No Angina: No Heart Murmur: No Hypercholesterolemia: No Congestive Heart Failure: No Rheumatic Fever: No Deep Vein Thrombosis: No Hypertension: No Respiratory Problems Chronic Obstructive Pulmonary Disease (COPD): No Asthma: No Bronchitis: No Pneumonia: No Tuberculosis: No Pulmonary Embolism: No Sleep Apnea: No Cough: Yes (Patient was recently diagnosed with influenza 2 weeks ago in the ER) Smoking: No Stomache/Intestinal Problems Hepatitis: No Celiac Disease: No Gall Bladder Disease: No Colitis: No Diverticulosis: No Gastroesophageal Reflux Disease: No Obesity: No Genital/Urinary Problems Renal Disease: No Kidney Stones: No Reproductive Problems Breast Cancer: No Endometriosis: No Fibroids: No Genital Herpes: Yes Gonorrhea: No Pelvic Inflammatory Disease: No Polycystic Ovarian Syndrome: No Previous Pregnancies: Yes (Previous x 4, one D& E, one D&C) Syphilis: No Uterine Prolapse: No Musculoskeletal Problems Arthritis: No Rheumatoid Arthritis: No Scoliosis: No Fibromyalgia: No Head,Eye,Nose,Throat Problems Glaucoma: No Endocrine Problems Diabetes Mellitus Type 1: No Diabetes Mellitus Type 2: No Hyperthyroidism: No Hypothyroidism: No Thyroid Cancer: No Systemic Lupus Erythematosus: No Blood Problems Anemia: Yes Clotting Problems: No Psychologic Problems Depression: Yes Anxiety: Yes Attention Deficit Disorder: No Attention Deficit Hyperactivity Disorder: No Other Problems Hospitalization: Yes (For x 4 recently in the ER for influenza) Down Syndrome: No Developmental Delay: No Shingles: No Falls: No Blood Transfusions: Yes Blood Transfusion Reaction: No Anesthesia Reactions: No Organ Transplant: No Chemotherapy: No Radiation Therapy: No Hyperbaric Therapy: No MRSA: No VRSA: No Vancomycin-Resistant Enterococci: No Human Immunodeficiency Virus (HIV): No Chicken Pox: No Measles: No Mumps: No Rubella ([place] Measles): No Pertussis: No Clostridium Difficile: No Cancer: No Surgical History Appendectomy: No Bariatric Surgery: No Breast Surgery: No Cholecystectomy: No Visit OB Visit Log OB Flowsheet Initial Weight: Not Recorded Date <del>?</del> EGA Weight Edema CTX Effacement BP Fundal ht Pres Dilation Effacement Station Visit Note Alb Glu FHR Mov 11/29/24 <del>?</del> 21w 0d 60.328 kg 108/77 140 active 12/31/24 <del>?</del> 25w 4d 65.431 kg 110/77 30 140 active 01/21/25 <del>?</del> 28w 4d 68.946 kg 109/72 32 140 active RODNEY Calculator Estimated Delivery Date Method Current WG Current Estimate 04/11/25 Ultrasound #1 29w 2d Other Estimates 04/12/25 LMP (Certain) 29w 1d Comments: DI DI TWINS WITH CS X 4 Expected Delivery Route/Plan Patient is very high risk. She has a history of x 4 . The last CS revealed a large amount of scar tissue present and the EBL was 1000 cc. She is this time with twins and it will be #5. Specific Issue/Plans Patient signed tubal ligation papers. She will be referred out for all remainder of her care to a high risk physician in [place]. Consult is pending at this time. Notes Visit Date: 01/21/25 Last Updated by: Tori James (OB Clinic)MD Seen in [facility] recently with back pain. FFN negative. VERY HIGH RISK AND I HAVE BEEN TRYING TO SEND TO AN [facility] FOR TRANSFER OF CARE. DR RESENDIZ SAW PT AT 28 WEEKS ANDUS REPORT WNL 01/19/25. Visit Date: 12/31/24 Last Updated by: Tori James (OB Clinic)MD Patient has a twin Di amniotic suspected dichorionic . Its natural twins. They are both moving well. Both have heartbeats today. They are both in a breech presentation. Patient has severe varicosities of her right lower extremity with pain. I will order a compression stocking for her right leg. Patient is still waiting on a referral to the [facility] for transfer of care. She has not had an ultrasound yet as there was a problem with her Medi-Gurpreet. Patient is dated by my 20-week ultrasound. She has no complaints today besides leg swelling and pain due to varicosities. She is off work on bedrest. She is on pelvic rest. She is extremely high risk due to x 4 and twin intrauterine gestation. She did sign tubal ligation papers today and has a copy. Office Procedures OB Clinic LOC & Office Proc's Nursing/Assessment Patient Status: Established Patient OB Clinic Nursing Assessment: Medication Reconciliation, Update PMH in EMR and Vital Signs OB Clinic Coordination of Care: AMA, Complex Care and Chronic Disease 1-5, Consent,records obtained, informed consent, Education Simp Pt/Fam, Results/Orders obtained and Staff clarify orders Special Needs: Heart tones Established Patient Charge Established Patient Point Assignment: 140 Established Patient Point Charge: EP Level 5 (160-above)
== END 2025-01-21 13:52 | disposition home or self-care (01) ==
LOC: HODSOBC 13:08
PROVIDERS: Supervising Provider Obstetrics & Gynecology; Visit Provider Obstetrics & Gynecology
DX: O09.523 Supervision of elderly multigravida, third trimester (principal); O09.293 Supervision of pregnancy with other poor reproductive or obstetric history, third trimester; Z3A.28 28 weeks gestation of pregnancy; O34.219 Maternal care for unspecified type scar from previous cesarean delivery; N85.8 Other specified noninflammatory disorders of uterus; O30.043 Twin pregnancy, dichorionic/diamniotic, third trimester; O32.1XX1 Maternal care for breech presentation, fetus 1; O32.1XX2 Maternal care for breech presentation, fetus 2; O22.03 Varicose veins of lower extremity in pregnancy, third trimester; I83.811 Varicose veins of right lower extremity with pain; I83.891 Varicose veins of right lower extremity with other complications
CPT/HCPCS: 99215; G0463

== ENCOUNTER 2025-02-09 08:35 | Outpatient (AMB) | payer MEDICAID, SELFPAY ==
[2025-02-09 08:52] VITALS: BP 108/65; PULSE 78; RESP 14; TEMP 36.6; O2SAT 97; BMI 24.6
--- NOTE | 2025-02-09 08:52 | AMB.OBVISIT ---
Vital Signs 02/09/25 08:52 Height 1.7 m Height Method Stated Weight 71.214 kg Weight Measurement Method Standing Scale BMI 24.6 BP 108/65 Blood Pressure Source Automatic Cuff Blood Pressure Location Right Upper Arm Position Sitting Respiration 14 Pulse 78 Pulse Source Monitor Temp 97.9 F Temp Source Oral Pulse Oximetry (%) 97 Oxygen Delivery Method Room Air Allergies/Home Meds Allergies & Medications Allergies No Known Allergies Allergy (Verified 02/09/25 08:53) Medication Reconciliation dextromethorphan HBr 15 mg/5 mL oral syrup 15 mg (5 mL) PO Q8H PRN cough #118 mL 11/29/24 [Rx Confirmed 02/09/25] comp.stocking,thigh,long,small #12 ea 12/31/24 [Rx Confirmed 02/09/25] valacyclovir 1 gram tablet (Valtrex) 1,000 mg PO QDAY PRN outbreak #30 tabs 01/13/25 [Rx Confirmed 02/09/25] acetaminophen 500 mg tablet 500 mg PO Q6H PRN pain 01/17/25 [History Confirmed 02/09/25] vits no.130-ferrous fum 27 mg iron-folic acid 800 mcg tablet ( Vitamin) 1 tab PO QDAY 01/17/25 [History Confirmed 02/09/25] Intake Visit Data Collection New Patient or Established: Established Patient (seen at [facility] within 3 years) Reason for Visit:: CARE Seen by Clinical Staff ONLY (RN/MA): No Bullet Swaging Machine 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 1. Little interest or pleasure in doing things: not at all 2. Feeling down, depressed, or hopeless: not at all Total score: 0 PHQ-9 3. Trouble falling or staying asleep, or sleeping too much: Not at all 4. Feeling tired or having little energy: Not at all 5. Poor appetite or overeating: Not at all 6. Feeling bad about yourself - or that you are a failure or have let yourself or your family down: Not at all 7. Trouble concentrating on things, such as reading the newspaper or watching television: Not at all 8. Moving or speaking so slowly that other people could have noticed? - Or the opposite - being so fidgety or restless that you have been moving around a lot more than usual: not at all 9. Thoughts that you would be better off or of hurting yourself in some way: Not at all Total score: 0 Source: Developed by Drs. John Villanueva, Tessa Boyd, Jorge Charles and colleagues, with an educational sumi from [employer]. 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 Father the baby is present today. Tobacco History Smoking Status: Never smoker Second Hand Smoke Exposure: Yes Alcohol History Alcohol Intake: Never Substance Use History Substance Use: no Domestic Abuse History Do You Feel Safe at Home: Yes Past Medical History Past Medical History Have you ever been diagnosed with any of the following: Neurological Problems Cerebrovascular Accident (CVA): No Transient Ischemic Attacks (TIA): No Parkinson's Disease: No Brain Tumor: No Meningitis: No Seizures: No Epilepsy: No Multiple Sclerosis: No Cerebral Palsy: No Morse's Palsy: No Migraine: No Cardiology Problems Myocardial Infarction: No Cardiac Arrhythmia: No Atrial Fibrillation: No Angina: No Heart Murmur: No Hypercholesterolemia: No Congestive Heart Failure: No Rheumatic Fever: No Deep Vein Thrombosis: No Hypertension: No Respiratory Problems Chronic Obstructive Pulmonary Disease (COPD): No Asthma: No Bronchitis: No Pneumonia: No Tuberculosis: No Pulmonary Embolism: No Sleep Apnea: No Cough: Yes (Patient was recently diagnosed with influenza 2 weeks ago in the ER) Smoking: No Stomache/Intestinal Problems Hepatitis: No Celiac Disease: No Gall Bladder Disease: No Colitis: No Diverticulosis: No Gastroesophageal Reflux Disease: No Obesity: No Genital/Urinary Problems Renal Disease: No Kidney Stones: No Reproductive Problems Breast Cancer: No Endometriosis: No Fibroids: No Genital Herpes: Yes Gonorrhea: No Pelvic Inflammatory Disease: No Polycystic Ovarian Syndrome: No Previous Pregnancies: Yes (Previous x 4, one D& E, one D&C) Syphilis: No Uterine Prolapse: No Musculoskeletal Problems Arthritis: No Rheumatoid Arthritis: No Scoliosis: No Fibromyalgia: No Head,Eye,Nose,Throat Problems Glaucoma: No Endocrine Problems Diabetes Mellitus Type 1: No Diabetes Mellitus Type 2: No Hyperthyroidism: No Hypothyroidism: No Thyroid Cancer: No Systemic Lupus Erythematosus: No Blood Problems Anemia: Yes Clotting Problems: No Psychologic Problems Depression: Yes Anxiety: Yes Attention Deficit Disorder: No Attention Deficit Hyperactivity Disorder: No Other Problems Hospitalization: Yes (For x 4 recently in the ER for influenza) Down Syndrome: No Developmental Delay: No Shingles: No Falls: No Blood Transfusions: Yes Blood Transfusion Reaction: No Anesthesia Reactions: No Organ Transplant: No Chemotherapy: No Radiation Therapy: No Hyperbaric Therapy: No MRSA: No VRSA: No Vancomycin-Resistant Enterococci: No Human Immunodeficiency Virus (HIV): No Chicken Pox: No Measles: No Mumps: No Rubella ([place] Measles): No Pertussis: No Clostridium Difficile: No Cancer: No Surgical History Appendectomy: No Bariatric Surgery: No Breast Surgery: No Cholecystectomy: No Care OB Visit Log OB Flowsheet Initial Weight: Not Recorded Date <del>?</del> EGA Weight Edema CTX Effacement BP Fundal ht Pres Dilation Effacement Station Visit Note Alb Glu FHR Mov 11/29/24 <del>?</del> 21w 0d 60.328 kg 108/77 140 active 12/31/24 <del>?</del> 25w 4d 65.431 kg 110/77 30 140 active 01/21/25 <del>?</del> 28w 4d 68.946 kg 109/72 32 140 active 02/09/25 <del>?</del> 31w 2d 71.214 kg 108/65 34 130 active RODNEY Calculator Estimated Delivery Date Method Current WG Current Estimate 04/11/25 Ultrasound #1 31w 2d Other Estimates 04/12/25 LMP (Certain) 31w 1d Comments: labs: O+\antibody screen negative\rubella immune\RPR nonreactive\hepatitis B surface antigen negative\HIV negative\hepatitis C negative\NIPT within normal limits all drawn at [facility] Patient signed tubal papers. Start NSTs at 34 weeks for dichorionic Di amniotic . Schedule with 2 MDs. Steroids to be given at 34 weeks. Expected Delivery Route/Plan Patient is very high risk. She has a history of x 4 . The last CS revealed a large amount of scar tissue present and the EBL was 1000 cc. She is this time with twins and it will be #5. Specific Issue/Plans Patient signed tubal ligation papers. She will be referred out for all remainder of her care to a high risk physician in [place]. Consult is pending at this time. Notes Visit Date: 01/21/25 Last Updated by: Tori James (OB Clinic)MD Seen in OBT recently with back pain. FFN negative. VERY HIGH RISK AND I HAVE BEEN TRYING TO SEND TO AN [facility] FOR TRANSFER OF CARE. DR RESENDIZ SAW PT AT 28 WEEKS ANDUS REPORT WNL 01/19/25. Visit Date: 12/31/24 Last Updated by: Tori James (OB Clinic)MD Patient has a twin Di amniotic suspected dichorionic . Its natural twins. They are both moving well. Both have heartbeats today. They are both in a breech presentation. Patient has severe varicosities of her right lower extremity with pain. I will order a compression stocking for her right leg. Patient is still waiting on a referral to the [facility] for transfer of care. She has not had an ultrasound yet as there was a problem with her Medi-Gurpreet. Patient is dated by my 20-week ultrasound. She has no complaints today besides leg swelling and pain due to varicosities. She is off work on bedrest. She is on pelvic rest. She is extremely high risk due to x 4 and twin intrauterine gestation. She did sign tubal ligation papers today and has a copy. Office Procedures OB Clinic LOC & Office Proc's Nursing/Assessment Patient Status: Established Patient OB Clinic Nursing Assessment: Medication Reconciliation, Update PMH in EMR and Vital Signs OB Clinic Coordination of Care: AMA, Complex Care and Chronic Disease 1-5, Consent,records obtained, informed consent, Education Simp Pt/Fam, Results/Orders obtained and Staff clarify orders Special Needs: Heart tones Miscellaneous Interventions: Blood/Urine Collection Established Patient Charge Established Patient Point Assignment: 170 Established Patient Point Charge: EP Level 5 (160-above)
== END 2025-02-09 09:13 | disposition home or self-care (01) ==
LOC: HODSOBC 08:35
PROVIDERS: PCP Obstetrics & Gynecology; Referring Provider Obstetrics & Gynecology; Supervising Provider Obstetrics & Gynecology; Visit Provider Obstetrics & Gynecology
DX: O09.523 Supervision of elderly multigravida, third trimester (principal); O09.293 Supervision of pregnancy with other poor reproductive or obstetric history, third trimester; O34.219 Maternal care for unspecified type scar from previous cesarean delivery; O09.893 Supervision of other high risk pregnancies, third trimester; Z3A.31 31 weeks gestation of pregnancy; O30.043 Twin pregnancy, dichorionic/diamniotic, third trimester; O32.1XX1 Maternal care for breech presentation, fetus 1; O32.1XX2 Maternal care for breech presentation, fetus 2; O22.03 Varicose veins of lower extremity in pregnancy, third trimester; I83.811 Varicose veins of right lower extremity with pain
CPT/HCPCS: 99215; G0463

== ENCOUNTER 2025-02-11 17:21 | Outpatient (CLI) | payer MEDICAID, SELFPAY ==
[2025-02-11 17:36] VITALS: BP 103/67; PULSE 95
[2025-02-11 17:43] VITALS: BMI 25.7
[2025-02-11 17:44] VITALS: BP 103/67; PULSE 95; RESP 18; RESP 99; TEMP 36.7
--- NOTE | 2025-02-11 17:54 | XR_ITS ---
Examination: age limited TECHNIQUE: Limited transabdominal sonographic images pelvis INDICATION: Edema swollen feet one week FINDINGS: Twin gestations Baby A cephalic presentation cardiac motion 157 BPM, estimated weight 1768 g Baby B, transverse presentation, head maternal right, cardiac motion 138 bpm Estimated weight 17 90 g IMPRESSION: Twin gestations as above
[2025-02-11] MEDS: BETAMET ACET/BETAMET NA PH (Celestone) 6 MG/ML VIAL 12 MG IM (18:25)
[2025-02-11 18:39] VITALS: BP 104/67; PULSE 101
[2025-02-11 19:02] LABS: Collection Type, Urine Clean Catch; RBC,Urine 0 /hpf (0-3); WBC,Urine 0 /hpf (0-5)
[2025-02-11 19:11] LABS: Basophils % (Auto) 0 % (0-2.5); Eosinophils # (Auto) 0.1 Thou/mm3 (0.0-0.5); Eosinophils % (Auto) 1 % (0-10); Immature Granulocytes % (Auto) 1 % (0-0); Immature Granulocytes Auto 0.06 Thou/mm3 (0.00-0.00); Lymphocytes # (Auto) 1.2 Thou/mm3 (1.0-4.8); Lymphocytes % (Auto) 18 % (10-50); Mean Corpuscular HGB Conc 31.1 g/dl (31.0-37.0); Mean Corpuscular Volume 71 fL (80-100); Monocytes # (Auto) 0.4 Thou/mm3 (0.0-0.8); Monocytes % (Auto) 6 % (0-12); Neutrophils # (Auto) 5.1 Thou/mm3 (1.8-7.7); Neutrophils % (Auto) 74 % (37-80); Nucleated Red Blood Cell # 0.02 Thou/mm3 (0.00-0.00); Nucleated Red Blood Cell % 0 /100 WBC (0); Platelet Count 156 Thou/mm3 (140-440); RDW Standard Deviation 42.3 fL (36.4-46.3); Red Blood Count 3.82 Miln/mm3 (4.00-5.20); White Blood Count 6.9 Thou/mm3 (3.6-11.0)
[2025-02-11 19:18] LABS: Hemoglobin 8.4 g/dL (12.0-16.0)
[2025-02-11 19:24] LABS: Fibrinogen 432 mg/dL (175-375); INR 0.9 (0.9-1.3); Partial Thromboplastin Time 26.5 Seconds (22.0-36.0); Prothrombin Time 10.4 Seconds (9.0-12.2)
[2025-02-11 19:30] LABS: Bacteria,Urine Rare; Bilirubin,Urine Negative (Negative); Blood,Urine Negative (Negative); Clarity,Urine Clear (Clear/Hazy); Color,Urine Lt-Yellow (Lt Yel-Yel); Glucose, Urine Negative (Negative); Hyaline Casts,Urine < 1 /hpf (0-1); Ketones,Urine Negative (Negative); Leukocyte Esterase,Urine Negative (Negative); Nitrite,Urine Negative (Negative); PH,Urine 6.5 (5.0-7.0); Protein,Urine Negative (Neg - Trace); Specific Gravity,Urine 1.017 (1.001-1.035); Squamous Epithelial Cell,Urine 3 /hpf (0-5); Urobilinogen,Urine Negative mg/dL (0.0-1.0)
[2025-02-11 19:35] LABS: Creatinine,Random Urine 94 mg/dL (30-125); Protein Total, Random Urine 22 mg/dL (1-14)
[2025-02-11 19:48] LABS: Alanine Aminotransferase 9 U/L (10-49); Albumin, Serum 3.5 gm/dL (3.5-5.0); Albumin/Globulin Ratio 1.5 (1.2-2.2); Alkaline Phosphatase 148 U/L (46-116); Anion Gap 8 (7-16); Aspartate Amino Transferase 20 U/L (0-34); BUN/Creatinine Ratio 14 Ratio (12-20); Bilirubin,Total 0.8 mg/dL (0.3-1.2); Blood Urea Nitrogen 7 mg/dL (9-23); Calcium 8.4 mg/dL (8.3-10.6); Calcium (Corrected) 8.8 mg/dL (8.5-10.1); Carbon Dioxide 23.3 mMol/L (20.0-31.0); Chloride 105 mMol/L (98-107); Creatinine (Component) 0.5 mg/dL (0.6-1.3); Estimated Creatinine Clearance 156.7 mL/min (>60); Globulin 2.3 gm/dL (2.3-3.5); Glucose 98 mg/dL (74-106); Osmolality,Calculated 269 (275-295); Potassium 3.5 mMol/L (3.4-5.1); Sodium 136 mMol/L (136-145); Total Protein 5.8 gm/dL (5.7-8.2); eGFR > 60 See Note
[2025-02-11 19:59] LABS: LDH (Lactate Dehydrogenase) 214 U/L (120-246)
== END 2025-02-11 21:27 | disposition home or self-care (01) ==
LOC: S4S1 17:25 → S4SX 17:26
PROVIDERS: Referring Provider Obstetrics & Gynecology; Visit Provider Obstetrics & Gynecology
DX: O12.03 Gestational edema, third trimester (principal); O30.003 Twin pregnancy, unspecified number of placenta and unspecified number of amniotic sacs, third trimester; Z3A.31 31 weeks gestation of pregnancy
CPT/HCPCS: 36415; 59025; 76815; 80053; 81001; 82570; 83615; 84156; 84550; 85025; 85384; 85610; 85730; 96372; J0702

== ENCOUNTER 2025-02-12 18:33 | Outpatient (CLI) | payer MEDICAID, SELFPAY ==
[2025-02-12] VITALS (13 sets, daily range): BP systolic 106–108; BP diastolic 67; PULSE 84–108; RESP 16–98; TEMP 36.6; O2SAT 98–100; BMI 24.6
[2025-02-12] MEDS: BETAMET ACET/BETAMET NA PH (Celestone) 6 MG/ML VIAL 12 MG IM (20:00)
== END 2025-02-12 20:10 | disposition home or self-care (01) ==
LOC: S4S1 18:36 → S4SX 18:37 → S4S1 18:38 → S4SX 18:39
PROVIDERS: Referring Provider Obstetrics & Gynecology; Visit Provider Obstetrics & Gynecology
DX: Z34.83 Encounter for supervision of other normal pregnancy, third trimester (principal); Z36.89 Encounter for other specified antenatal screening; Z3A.31 31 weeks gestation of pregnancy
CPT/HCPCS: 59025; 96372; J0702

== ENCOUNTER 2025-02-23 14:23 | Outpatient (AMB) | payer MEDICAID, SELFPAY ==
[2025-02-23 14:34] VITALS: BP 122/82; PULSE 99; RESP 18; TEMP 36.2; O2SAT 99
--- NOTE | 2025-02-23 14:34 | OBCLNT_ITS ---
Vital Signs 02/23/25 14:34 Weight 72.178 kg Weight Measurement Method Standing Scale BP 122/82 Blood Pressure Source Automatic Cuff Blood Pressure Location Left Upper Arm Position Sitting Respiration 18 Pulse 99 Pulse Source Monitor Temp 97.2 F Temp Source Oral Pulse Oximetry (%) 99 Oxygen Delivery Method Room Air Allergies/Home Meds Allergies & Medications Allergies No Known Allergies Allergy (Verified 02/23/25 14:35) Medication Reconciliation comp.stocking,thigh,long,small #12 ea 12/31/24 [Rx Confirmed 02/23/25] valacyclovir 1 gram tablet (Valtrex) 1,000 mg PO QDAY PRN outbreak #30 tabs 01/13/25 [Rx Confirmed 02/23/25] vits no.130-ferrous fum 27 mg iron-folic acid 800 mcg tablet ( Vitamin) 1 tab PO QDAY 01/17/25 [History Confirmed 02/23/25] Intake Visit Data Collection New Patient or Established: Established Patient (seen at [facility] within 3 years) Reason for Visit:: OBC Seen by Clinical Staff ONLY (RN/MA): No Recruiter Coordinator Required: No Do You Feel Safe at Home: Yes Authorities Contacted: N/A PCP or OBGYN visit in last 3 months: Yes Date of Last PCP or OBGYN visit: 02/12/25 Hx Now: Yes Are you currently on any form of Control: No Pain Present Currently: No Pain Scale Used: Suarez-Moreno/Numerical Pain scale:: 0 Smoking Status Smoking Status: Never smoker Questionnaires Covid-19 Vaccine Questionnaire Has patient been vacinated for Covid-19 Have you been vacinated for Covid-19: Yes PHQ-9 PHQ-2 Over the last 2 weeks, how often have you been bothered by any of the following problems? 1. Little interest or pleasure in doing things: not at all 2. Feeling down, depressed, or hopeless: not at all Total score: 0 PHQ-9 3. Trouble falling or staying asleep, or sleeping too much: Not at all 4. Feeling tired or having little energy: Not at all 5. Poor appetite or overeating: Not at all 6. Feeling bad about yourself - or that you are a failure or have let yourself or your family down: Not at all 7. Trouble concentrating on things, such as reading the newspaper or watching television: Not at all 8. Moving or speaking so slowly that other people could have noticed? - Or the opposite - being so fidgety or restless that you have been moving around a lot more than usual: not at all 9. Thoughts that you would be better off or of hurting yourself in some way: Not at all Total score: 0 If you checked off any problems, how difficult have these problems made it for you to do your work, take care of things at home, or get along with other people?: not difficult at all Source: Developed by Drs. John Villanueva, Tessa Boyd, Jorge Charles and colleagues, with an educational sumi from [employer]. 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 Father the baby is present today. Tobacco History Smoking Status: Never smoker Second Hand Smoke Exposure: Yes Alcohol History Alcohol Intake: Never Substance Use History Substance Use: no Domestic Abuse History Do You Feel Safe at Home: Yes RN INTEGRITY: Past Medical History Past Medical History: No Hx Neurological Disorders, No Hx Hypothyroidism, No Hx Hyperthyroidism, No Hx Breast Cancer, No Hx Cardiac Disorders, No Hx Hypertension, No Hx Cancer, Yes Hx Blood Disorders, Yes Hx Anemia, No Hx Gastrointestinal Disorders, No Hx Renal Disease, No Hx Deep Vein Thrombosis, No Hx Diabetes Mellitus Type 1, No Hx Diabetes Mellitus Type 2 and No Hx Polycystic Ovarian Syndrome Care OB Visit Log OB Flowsheet Initial Weight: Not Recorded Date -?-?-?-?-?-?-?-?-?-?-?-?- EGA Weight BP Alb Glu CTX Pres Fundal ht FHR Mov Dilation Station Effacement Hx Notes Visit Note 11/29/24 -?-?-?-?-?-?-?-?-?-?-?-?- 21w 0d 60.328 kg 108/77 140 active 12/31/24 -?-?-?-?-?-?-?-?-?-?-?-?- w 4d 65.431 kg 110/77 30 140 active 01/21/25 -?-?-?-?-?-?-?-?-?-?-?-?- 28w 4d 68.946 kg 109/72 32 140 active 02/09/25 -?-?-?-?-?-?-?-?-?-?-?-?- 31w 2d 71.214 kg 108/65 34 130 active 02/23/25 -?-?-?-?-?-?-?-?-?-?-?-?- 33w 2d 72.178 kg 122/82 occasional 37 134 active Di/di twins. Babies both moving. Patient has regu lar contractions no bleeding no loss of fluids. Already had steroids. RODNEY Calculator Estimated Delivery Date Method Current WG Current Estimate 04/11/25 Ultrasound #1 34w 1d Other Estimates 04/12/25 LMP (Certain) 34w 0d Comments: 39-year-old -0-0-4 status post x 4. Has Di amniotic dichorionic twins. Signed tubal ligation papers. Need PNC laabs. Expected Delivery Route/Plan Patient is very high risk. She has a history of x 4 . The last CS revealed a large amount of scar tissue present and the EBL was 1000 cc. She is this time with twins and it will be #5. Start NSTs at 33 weeks. Schedule at 37 weeks. Specific Issue/Plans Patient signed tubal ligation papers. She will be referred out for all remainder of her care to a high risk physician in [place]. Consult is pending at this time. Notes Visit Date: 01/21/25 Last Updated by: Tori James (OB Clinic)MD Seen in OBT recently with back pain. FFN negative. VERY HIGH RISK AND I HAVE BEEN TRYING TO SEND TO AN [facility] FOR TRANSFER OF CARE. DR RESENDIZ SAW PT AT 28 WEEKS ANDUS REPORT WNL 01/19/25. Visit Date: 12/31/24 Last Updated by: Tori James (OB Clinic)MD Patient has a twin Di amniotic suspected dichorionic . Its natural twins. They are both moving well. Both have heartbeats today. They are both in a breech presentation. Patient has severe varicosities of her right lower extremity with pain. I will order a compression stocking for her right leg. Patient is still waiting on a referral to the [facility] for transfer of care. She has not had an ultrasound yet as there was a problem with her Medi-Gurpreet. Patient is dated by my 20-week ultrasound. She has no complaints today besides leg swelling and pain due to varicosities. She is off work on bedrest. She is on pelvic rest. She is extremely high risk due to x 4 and twin intrauterine gestation. She did sign tubal ligation papers today and has a copy. Office Procedures OB Clinic LOC & Office Proc's Nursing/Assessment Patient Status: Established Patient OB Clinic Nursing Assessment: Medication Reconciliation, Update PMH in EMR and Vital Signs OB Clinic Coordination of Care: Education Complex Pt/Fam, Consent,records obtained, informed consent, Lab and Imaging orders, Results/Orders obtained and Staff clarify orders Special Needs: Heart tones Established Patient Charge Established Patient Point Assignment: 115 Established Patient Point Charge: EP Level 3 (80-115)
== END 2025-02-23 15:35 | disposition home or self-care (01) ==
LOC: HODSOBC 14:23
PROVIDERS: PCP Obstetrics & Gynecology; Referring Provider Obstetrics & Gynecology; Supervising Provider Obstetrics & Gynecology; Visit Provider Obstetrics & Gynecology
DX: O09.523 Supervision of elderly multigravida, third trimester (principal); O09.893 Supervision of other high risk pregnancies, third trimester; O30.043 Twin pregnancy, dichorionic/diamniotic, third trimester; Z3A.33 33 weeks gestation of pregnancy; O09.293 Supervision of pregnancy with other poor reproductive or obstetric history, third trimester; O34.219 Maternal care for unspecified type scar from previous cesarean delivery
CPT/HCPCS: 99213; G0463

== ENCOUNTER 2025-03-07 15:57 | Outpatient (RCR) | payer MEDICAID, SELFPAY ==
[2025-03-07 16:30] VITALS: BP 119/78; PULSE 64; RESP 16; TEMP 36.9
== END 2025-03-07 23:59 | disposition home or self-care (01) ==
LOC: S4S1 15:57
PROVIDERS: Referring Provider Obstetrics & Gynecology; Visit Provider Obstetrics & Gynecology
DX: O30.043 Twin pregnancy, dichorionic/diamniotic, third trimester (principal); O09.523 Supervision of elderly multigravida, third trimester; O34.29 Maternal care due to uterine scar from other previous surgery; N85.8 Other specified noninflammatory disorders of uterus; Z3A.34 34 weeks gestation of pregnancy
CPT/HCPCS: 59025; J0330; J1100; J1171; J1885; J2210; J2250; J2274; J2371; J2405; J2590; J2704; J3010; J3490; J2270

== ENCOUNTER 2025-03-10 06:14 | Inpatient (IN) | payer MEDICAID, SELFPAY ==
[2025-03-10] VITALS (16 sets, daily range): BP systolic 120–140; BP diastolic 57–83; PULSE 59–76; RESP 13–99; TEMP 36.4–36.8; O2SAT 92–100; BMI 26.4; BMI 26.5
--- NOTE | 2025-03-10 06:52 | ESHP_ITS ---
Documentation for date of: 03/10/25 OB Labor/Induct. HPI History of Present Illness Chief complaint: Ruptured membranes, labor, 35 weeks : 6 Term pregnancies: 3 pregnancies: 1 Living children: 4 History of Abortions: Spontaneous and Elective: 1 History of sections: Yes (X 4) History of : No RODNEY: 04/11/25 Gestational Age (weeks): 35 Gestational Age (days): 1 History of present illness: Patient is a 39-year-old -1-1-4 with a known history of twins history of C- section x 4 last 1 with a lot of scar tissue. Patient presented with ruptured membranes at 35 and 1 sevenths weeks and in labor. She is consented for a repeat section. Of note she does desire tubal ligation. Also of note she is consented for possible hysterectomy. History of Present Dating criteria: LMP confirmed by 2nd trimester US Adequate Care: Yes Ultrasounds: normal mid trimester US Obstetrical complications: other (Di/di twins, history of x 4 last C- section with a lot of scar tissue present.) Labs Maternal Blood Type: O Pos Labs: Positive: Rubella Titre, Negative: RPR, Hepatitis B, HIV, Chlamydia and Gonorrhea and Unknown: Herpes Type 1, Herpes Type 2 and Group Beta Strep Review of Systems Constitutional Comments: Patient ruptured her membranes this morning clear fluid. She appears comfortable is not breathing through contractions. Past Medical History Surgical History SURGICAL: Positive Section (X 4) OTHER SURGICAL HX: History of x 4 history of D&E x 1 Meds Home Medications and Allergies Home Medications ?Medication ?Instructions ?Recorded ?Confirmed ?Type vits no.130-ferrous fum 1 tab PO QDAY 5 03/10/25 History 27 mg iron-folic acid 800 mcg tablet ( Vitamin) Allergies Allergy/AdvReac Type Severity Reaction Status Date / Time No Known Allergies Allergy Verified 03/10/25 06:23 OB Exam Physical Exam Vital signs: Pulse BP 76 120/76 03/10/25 06:26 03/10/25 06:26 Constitutional Constitutional: mild distress Comments: Patient slightly uncomfortable with contractions Routine Abdominal Exam Abdominal: Present soft Detailed Labor and Delivery Exam Effacement (%): 100 Cervix position: mid station: 0 Consistency: soft Presentation: Vertex (First baby is vertex unknown position of second baby) monitor accelerations: 15x15 monitor decelerations: None senior living variability: Average (6-10) Contraction frequency (min): Irregular OB Assessment & Plan Assessment and Plan (1) Previous section: Status: Acute Assessment and plan: For emergent repeat in labor ruptured and complete. Consented for repeat blood transfusion possible hysterectomy. The risks of procedure were discussed discussed with the patient including the risk of bleeding infection blood transfusion damage to bowel bladder blood vessels other organs prolonged hospital stay should further surgery can be required. Patient is also consented for a hysterectomy She is consented for a tubal ligation. All consents were signed all questions were answered. 2 IVs are started. 2 units of blood on hold. (2) Advanced maternal age (AMA) in : Status: Acute (3) Twin : Status: Acute Assessment and plan: Di/di twins natural. (4) : Status: Acute (3) Twin Qualifiers: Multiple gestation type: dichorionic and diamniotic Trimester: second trimester Qualified Code(s): O30.042 - Twin , dichorionic/diamniotic, second trimester (4) Qualifiers: Weeks of gestation: 25 weeks Qualified Code(s): Z3A.25 - 25 weeks gestation of
[2025-03-10] MEDS: RINGERS LACTATED 1000 ML 1,000 ML 100 ML IV (07:02)
[2025-03-10 07:04] LABS: Basophils % (Auto) 0 % (0-2.5); Eosinophils # (Auto) 0.1 Thou/mm3 (0.0-0.5); Eosinophils % (Auto) 1 % (0-10); Hematocrit 34.6 % (36.0-46.0); Hemoglobin 11.2 g/dL (12.0-16.0); Immature Granulocytes % (Auto) 1 % (0-0); Immature Granulocytes Auto 0.03 Thou/mm3 (0.00-0.00); Lymphocytes # (Auto) 2.3 Thou/mm3 (1.0-4.8); Lymphocytes % (Auto) 35 % (10-50); Mean Corpuscular HGB Conc 32.4 g/dl (31.0-37.0); Mean Corpuscular Hemoglobin 23.9 pg (25.0-35.0); Mean Corpuscular Volume 74 fL (80-100); Monocytes # (Auto) 0.6 Thou/mm3 (0.0-0.8); Monocytes % (Auto) 9 % (0-12); Neutrophils # (Auto) 3.4 Thou/mm3 (1.8-7.7); Neutrophils % (Auto) 54 % (37-80); Nucleated Red Blood Cell # 0.02 Thou/mm3 (0.00-0.00); Nucleated Red Blood Cell % 0 /100 WBC (0); Platelet Count 142 Thou/mm3 (140-440); Red Blood Count 4.69 Miln/mm3 (4.00-5.20); White Blood Count 6.4 Thou/mm3 (3.6-11.0)
[2025-03-10] MEDS: FAMOTIDINE INJ 10 MG/ML VIAL 2 ML 20 MG IV (07:04)
[2025-03-10] MEDS: ceFAZolin/D5W 2 GM IV 2 GM/100 ML BAG IV (07:04)
[2025-03-10 08:00] LABS: Syphilis Nonreactive (Nonreactive)
[2025-03-10] MEDS: ACETAMINOPHEN IVPB 1,000 MG/100 ML VIAL 250 MG IV (09:30)
[2025-03-10] MEDS: OXYTOCIN in NS 20 units 20 UNIT/1,000 ML BAG 125 UNIT IV ×2 (10:12→19:27)
[2025-03-10] MEDS: MORPHINE SULF INJ 10 MG/ML VIAL 2 MG IVP (10:12)
[2025-03-10] MEDS: HYDROmorphone INJ 2 MG/ML VIAL IVP ×2 (10:42→22:15)
--- NOTE | 2025-03-10 10:50 | PD.GYNPROC ---
Operative Note - CUSTOMER ENGINEER Procedure Date of procedure: 03/10/25 Procedure Performed: Repeat low-transverse section with near-total bilateral salpingectomies Indication: The patient is a 39-year-old -1-1-4 past obstetrical history is significant for x 4 and 1 D&E. She has been followed at the clinic with Dr. Aniya James in since 20 weeks of . She has diamniotic dichorionic twins. She has been given steroids at about 33 weeks. She presented at 35 weeks and 3/7 weeks around 0630 this morning with ruptured membranes and feeling pressure. An exam in triage revealed a complete cervical dilation. Pre-Op diagnosis: 1. IUP 35 3/7 weeks 2. Previous x 4 3. Diamniotic dichorionic twins 4. Ruptured membranes in labor. 5. Multiparity desires permanent sterilization Post-Op diagnosis: Same Anesthesia type: General Procedure description: After obtaining informed consent, the patient was brought back to the operating room and general anesthesia administered. She was then prepped and draped in dorsal supine position with a leftward tilt in a normal sterile fashion. A Orozco catheter was inserted to the patient's bladder. The patient was given 2 g of Ancef by anesthesia. A Pfannenstiel skin incision was made with a scalpel through the patient's prior scar and carried down to the underlying fascia. The fascia was incised in the midline, and the fascial incision extended laterally using Weldon scissors. The superior aspect of the fascia was grasped with Stefania clamps and the underlying rectus muscles dissected off using blunt and sharp dissection. This was repeated in the inferior aspect the incision. The rectus muscle was in the midline and the peritoneum entered bluntly with the surgeon's fingers. This was extended superiorly and inferiorly with good visualization of bladder. The bladder blade was inserted and the uterus incised in low transverse fashion using a scalpel. The uterine incision was extended laterally some blunt dissection with the surgeon's fingers. The bag of water of twin a was ruptured and twin A was delivered in a vertex presentation atraumatically. A cord was clamped and cut the was handed off to waiting pediatric staff. Cord gases and cord blood were sent. The bag of water bag baby B was then ruptured and clear fluid was noted. Baby B was delivered was originally in a transverse presentation delivered vertex with an atraumatic fashion. The cord was clamped and cut and baby was handed off the operating field to the waiting pediatric staff. Cord blood and cord gases were sent. The placenta was then manually removed and handed off the operating field to be sent down to pathology. The uterus was exteriorized and cleared of all clots and debris. The uterine incision was repaired using 0 Monocryl in a running locked fashion. Excellent hemostasis was noted. The uterus was returned to the patient's abdominal cavity, and copious irrigation carried out with warm normal saline. The uterine incision was reexamined several times and noted to be hemostatic. As patient desired her tubes or fallopian tubes to be removed, the uterus was tilted while in situ. The left fallopian tube was identified and followed out to the fimbriated end. It was elevated using 2 Janna clamps. The intervening tubal segment was ligated using 2 free ties of 0 plain and the segment transected and handed off the operating field . A near total portion of that fallopian tube was handed off the operating field. The same procedure was repeated in the opposite fallopian tube where the opposite fallopian tube was identified, elevated with 2 [place] clamps ligated and transected in a similar fashion. A near total portion of that fallopian tube was handed off the operating field. The tubal transection sites were reexamined noted be hemostatic. The uterine incision was reexamined and noted be hemostatic. After ensuring the rectus muscles were hemostatic these were reapproximated in the midline using a running suture of 0 Monocryl. The fascia was closed with 0 Vicryl in a running fashion. The subcutaneous tissues were irrigated found to hemostatic. The skin was closed with a subcuticular suture of 4-0 Vicryl. The patient tolerated the procedure well, sponge, lap, instrument, and needle counts were correct x 2. Patient went to the recovery area, awake and in stable condition . Of note both babies were in the NICU doing very well at the time of dictation. Fluids: crystalloid Fluid amount (mL): 1,000 Urine output (mL): 700 Specimen: left tube and right tube Estimated blood loss (ml): 800 Findings: Baby A liveborn male vertex presentation born at 0734 the morning weighing 2470 g or 5 pounds 7 ounces. Apgars were 8 and 9. Baby B liveborn male transverse presentation born at 0735 weighing 2720 g or 6 pounds even Apgars were 7 and 9 all ovaries and fallopian tubes bilaterally. Very little scar tissue present the patient's abdomen. Thin lower uterine segment. Complications: none Surgical staff Operation Date: 03/10/25 07:45 Case Staff Assisting Surgeon: Mario Alberto Perkins INFORMATION RECEPTIONIST: Ira Byrd INFORMATION RECEPTIONIST: Morteza Conteh RNjava security engineer: Faisal Cruz Diagnosis Discharge Diagnosis (1) Previous section: Status: Acute Problem details: Previous x 4 (2) Advanced maternal age (AMA) in : Status: Acute Problem details: Status post normal NIPT and level 2 ultrasound (3) Twin : Status: Acute Problem details: Natural Di Di twins (4) : Status: Acute (5) Premature rupture of membranes (PROM) affecting sixth : Status: Acute Problem details: For emergent repeat (6) Grand multiparity in labor and delivery: Status: Acute Problem details: Desires bilateral tubal ligation. Papers signed and on the chart. Problem List Completed Was Problem List Reviewed/Reconciled?: Yes (3) Twin Qualifiers: Multiple gestation type: dichorionic and diamniotic Trimester: second trimester Qualified Code(s): O30.042 - Twin , dichorionic/diamniotic, second trimester (4) Qualifiers: Weeks of gestation: 25 weeks Qualified Code(s): Z3A.25 - 25 weeks gestation of
--- NOTE | 2025-03-10 11:09 | OBDSUM_ITS ---
Data (Multiple) Data Hx Section: Yes (X 4) Reason for Primary Section: Previous x 4 in labor with ruptured membranes : 6 Term: 3 : 1 Livin Abortions: Spontaneous & Theraputic: 1 Delivery Data A Labor Data Initiation of labor: Spontaneous Induction/Augmentation Agent: None ROM date: 03/10/25 ROM time: 05:30 Amniotic membrane rupture type: Spontaneous Amniotic fluid description: Clear Delivery Data EDC: 04/11/26 EDC calculated by:: LMP/early US confirmation Date of arrival to unit: 03/10/25 [place] delivery date: 03/10/25 delivery time: 07:35 Gestational age (weeks): 35 Gestational age (days): 3 Placenta delivery date: 03/10/25 Placenta delivery time: 07:36 Delivered by: Tori [facility] ([facility]) Other staff at delivery: Dr. Perkins Delivery Method Delivery method: Low Transverse Presentation: Transverse position: OA Anesthesia Type Anesthesia Type: General Delivery Room Medications Delivery room medications given: TXA Delivery room medications: Methergine 0.2 mg IM Placenta Placenta delivery description: Manual Removal Placenta Disposition: Sent to Pathology Placenta disposition: Sent to Pathology Cord blood sent to lab: Yes cord blood collection: Cord Blood Type, Arterial Cord Blood Gas and Venous Cord Blood Gas EBL Estimated blood loss (ml): 700 Umbilical Cord cord description: 3 Vessels Additional Procedures See op report for further details Complications Complications: None [place] Data A [place] Data order: 1 Infant Gender - Fetus A: Male weight (lbs): 2267.962 g [place] length: 50.8 cm
--- NOTE | 2025-03-10 11:13 | OBDSUM_ITS ---
Data (Multiple) Data Hx Section: Yes (X 4) Reason for Primary Section: Previous x 4 in labor with ruptured membranes Maternal Blood Type: O Pos : 6 Term: 3 : 1 Livin Abortions: Spontaneous & Theraputic: 1 Delivery Data B Labor Data Initiation of labor: Spontaneous ROM date: 03/10/25 ROM time: 05:30 Amniotic membrane rupture type: Spontaneous Amniotic fluid description: Clear Delivery Data EDC: 04/11/25 EDC calculated by:: LMP/early US confirmation Gestational age (weeks): 35 Gestational age (days): 3 [place] delivery date: 03/10/25 delivery time: 07:35 Placenta delivery date: 03/10/25 Placenta delivery time: 07:36 Delivered by: Tori [facility] ([facility]) Respiratory therapist(s) at delivery: Yes Assistant Sales Manager at delivery: Yes Delivery Method Delivery method: Low Transverse Presentation: Transverse position: OA Anesthesia Type Anesthesia Type: General Delivery Room Medications Delivery room medications given: TXA Delivery room medications: Methergine 0.2 mg IM Placenta [place] delivery description: Manual Removal Placenta Disposition: Sent to Pathology Cord blood sent to lab: Yes cord blood collection: Cord Blood Type, Arterial Cord Blood Gas and Venous Cord Blood Gas EBL Estimated blood loss (ml): 700 Umbilical Cord cord description: 3 Vessels Additional Procedures Please see op report for further details Complications Complications: None [place] Data B Data order: 2 Infant Gender - Fetus B: Male Infant Weight Grams - Fetus B: 2720 Apgars 7 and 9
[2025-03-10] MEDS: KETOROLAC INJ 30 MG/ML VIAL IVP (16:00)
[2025-03-10 19:38] LABS: Amphetamine/Metham Scrn,Ur OB Negative (Negative); Benzoylecgonine Screen, Ur OB Negative (Negative); Opiate Screen,Urine OB Positive (Negative); THC Screen,Urine OB Negative (Negative)
[2025-03-10] MEDS: ACETAMINOPHEN 325 MG TABLET 650 MG PO (19:38)
[2025-03-10 19:39] LABS: Opiates U Confirm* See Sep Rpt
[2025-03-11] VITALS (7 sets, daily range): BP systolic 111–124; BP diastolic 67–75; PULSE 70–94; RESP 16–18; TEMP 36.5–37; O2SAT 96–99
[2025-03-11] MEDS: SODIUM CHLORIDE 0.9% 1000 ML 2,000 ML 2000 ML IV (00:27)
[2025-03-11] MEDS: RINGERS LACTATED 1000 ML 1,000 ML 100 ML IV (01:44)
[2025-03-11] MEDS: Milk Of Magnesia Susp 30 ML UDC PO (04:02)
[2025-03-11] MEDS: SIMETHICONE 80 MG CHEW PO ×2 (04:02→15:56)
[2025-03-11] MEDS: ACETAMINOPHEN IVPB 1,000 MG/100 ML VIAL 250 MG IV (04:17)
[2025-03-11 05:43] LABS: Basophils % (Auto) 0 % (0-2.5); Eosinophils % (Auto) 0 % (0-10); Hematocrit 24.4 % (36.0-46.0); Immature Granulocytes % (Auto) 0 % (0-0); Immature Granulocytes Auto 0.02 Thou/mm3 (0.00-0.00); Lymphocytes # (Auto) 1.1 Thou/mm3 (1.0-4.8); Lymphocytes % (Auto) 10 % (10-50); Mean Corpuscular HGB Conc 33.2 g/dl (31.0-37.0); Mean Corpuscular Hemoglobin 24.8 pg (25.0-35.0); Mean Corpuscular Volume 75 fL (80-100); Monocytes # (Auto) 0.7 Thou/mm3 (0.0-0.8); Monocytes % (Auto) 6 % (0-12); Neutrophils # (Auto) 9.5 Thou/mm3 (1.8-7.7); Neutrophils % (Auto) 84 % (37-80); Nucleated Red Blood Cell % 0 /100 WBC (0); Platelet Count 139 Thou/mm3 (140-440); RDW Standard Deviation 62.4 fL (36.4-46.3); Red Blood Count 3.26 Miln/mm3 (4.00-5.20); White Blood Count 11.4 Thou/mm3 (3.6-11.0)
[2025-03-11 05:46] LABS: Hemoglobin 8.1 g/dL (12.0-16.0)
[2025-03-11] MEDS: KETOROLAC INJ 30 MG/ML VIAL IVP ×3 (06:02→17:22)
--- NOTE | 2025-03-11 08:02 | PD.LDPPPRG ---
Subjective Subjective Interval history: Patient denies any primary complaint.. She is got adequate urine output with Orozco catheter in place.. She has no vaginal bleeding around the [place] balloon. She is tolerating a regular diet without nausea or vomiting. She is passing flatus. She denies any dizziness lightheadedness chest pain shortness of breath or lower extremity pain. Exam Vital Signs Temp Pulse Resp BP Pulse Ox O2 Del Method O2 Flow Rate 98.6 F 84 17 124/74 96 Room Air 4 03/11/25 04:00 03/11/25 04:00 03/11/25 04:00 03/11/25 04:00 03/10/25 16:20 03/11/25 04:00 03/10/25 10:45 Routine Respiratory Exam Comments: Clear to auscultation bilaterally Routine Cardiovascular Exam Comments: Regular rate and rhythm Routine Abdominal Exam Comments: Dressing dry and intact. Fundus is firm. Nondistended Routine Exam Comments: Bakri balloon deflated and removed without difficulty. No bleeding noted. Routine Extremities Exam Comments: Nontender Objective Labs 03/11/25 05:20 Labs: Laboratory Results - last 24 hr 03/10/25 03/10/25 03/11/25 06:50 18:00 05:20 WBC 11.4 H D RBC 3.26 L Hgb 8.1 L D Hct 24.4 L D MCV 75 L MCH 24.8 L MCHC 33.2 RDW Std Deviation 62.4 H Plt Count 139 L Neut % (Auto) 84 H Lymph % (Auto) 10 [place] % (Auto) 6 Eos % (Auto) 0 Baso % (Auto) 0 Neut # (Auto) 9.5 H Lymph # (Auto) 1.1 [place] # (Auto) 0.7 Eos # (Auto) 0.0 Baso # (Auto) 0.0 Immature Gran # (Auto) 0.02 H Absolute Nucleated RBC 0.00 Immature Gran % 0 Nucleated RBC % 0 Urine Opiates Screen Positive A U Amphetamin/Meth Scrn Negative U Cocaine Metab Screen Negative U Marijuana (THC) Screen Negative Blood Type O Positive Antibody Screen NEGATIVE Crossmatch See Detail Blood Bank Wristband ID Yes Assessment & Plan Problem List (1) Previous section: Problem details: Previous x 4 Status: Acute Assessment and plan: Postop day #1 status post delivery with hemorrhage and placement of Bakri balloon Status post removal of Bakri balloon with no significant vaginal bleeding Hemoglobin 8.1 but hemodynamically stable Remove Orozco catheter DC dressing DC IV , saline lock Encourage ambulation support Possible discharge home tomorrow (2) Advanced maternal age (AMA) in : Problem details: Status post normal NIPT and level 2 ultrasound Status: Acute (3) Twin : Problem details: Natural Di Di twins Status: Acute (4) : Status: Acute (5) Premature rupture of membranes (PROM) affecting sixth : Problem details: For emergent repeat Status: Acute (6) Grand multiparity in labor and delivery: Problem details: Desires bilateral tubal ligation. Papers signed and on the chart. Status: Acute Time Spent With Patient Time: Total time spent is greater than 50% in coordination of care (as documented) at patient's floor/unit and/or counseling patient:
--- NOTE | 2025-03-11 08:45 | PC.NURSE ---
0738: DR. REYES AT BEDSIDE, REMOVED BAKRI BALLOON
--- NOTE | 2025-03-11 09:51 | PC.CC ---
Patient is a 39-year-old, female, present to for delivery of baby boy twins. ASW, Nohemy, met with patient [id number] to do initial assessment due mother history of depression. ASW introduced herself, role in the agency, reason for visit, and discussed limits of confidentiality. Patient appeared alert and oriented to self, time, place, and situation. Patient made good eye contact. Patient was cooperative. Patient?s behavior appeared ordinary. No signs of delusions or hallucinations. Patient reports a year ago she was receiving mental health outpatient treatment but stopped as she was no longer depressed. Patient reports she was not prescribed medication. Patient denied past suicide attempts, homicidal ideations, visual and auditory hallucinations. Patient denied past 5150-holds. Patient reports she knows how to seek services in the event she starts experiencing depression. Per patient, she has a strong support system which includes the father of the baby-Chapo Dumont and her extended family such as cousins. Patient denied past CWS involvement and domestic violences. Patient reports she has all the supplies she needs for her new born twins. ASW provided psychoeducation regarding baby blues and Post- Depression, as well as counseling groups at [facility], and [facility]. SW provided community resources: Warm Line and Crisis Line. ASW provided update to bedside UMANG Thrasher.
[2025-03-11] MEDS: HYDROcodone/APAP 5/325 TABLET 1 TAB PO (10:07)
[2025-03-11] MEDS: HYDROcodone/APAP 5/325 TABLET 2 TAB PO (15:00)
[2025-03-11] MEDS: ACETAMINOPHEN 325 MG TABLET 650 MG PO (20:35)
[2025-03-12] MEDS: IBUPROFEN TAB 400 MG TABLET 800 MG PO ×2 (00:46→08:46)
[2025-03-12] MEDS: SIMETHICONE 80 MG CHEW PO ×4 (00:47→21:10)
[2025-03-12 04:00] VITALS: BP 132/80; PULSE 63; RESP 17; TEMP 36.7; O2SAT 96
[2025-03-12] MEDS: HYDROcodone/APAP 5/325 TABLET 1 TAB PO ×3 (05:42→20:05)
[2025-03-12 07:39] VITALS: BP 108/74; PULSE 80; RESP 18; TEMP 36.7; O2SAT 98
[2025-03-12 09:05] LABS: Basophils % (Auto) 0 % (0-2.5); Eosinophils % (Auto) 0 % (0-10); Hematocrit 25.4 % (36.0-46.0); Immature Granulocytes % (Auto) 1 % (0-0); Immature Granulocytes Auto 0.06 Thou/mm3 (0.00-0.00); Lymphocytes # (Auto) 0.9 Thou/mm3 (1.0-4.8); Lymphocytes % (Auto) 9 % (10-50); Mean Corpuscular HGB Conc 31.9 g/dl (31.0-37.0); Mean Corpuscular Hemoglobin 24.3 pg (25.0-35.0); Mean Corpuscular Volume 76 fL (80-100); Monocytes # (Auto) 0.7 Thou/mm3 (0.0-0.8); Monocytes % (Auto) 7 % (0-12); Neutrophils # (Auto) 8.7 Thou/mm3 (1.8-7.7); Neutrophils % (Auto) 84 % (37-80); Nucleated Red Blood Cell % 0 /100 WBC (0); Platelet Count 172 Thou/mm3 (140-440); RDW Standard Deviation 65.5 fL (36.4-46.3); Red Blood Count 3.33 Miln/mm3 (4.00-5.20); White Blood Count 10.4 Thou/mm3 (3.6-11.0)
[2025-03-12 09:18] LABS: Hemoglobin 8.1 g/dL (12.0-16.0)
[2025-03-12] MEDS: Milk Of Magnesia Susp 30 ML UDC PO (10:16)
--- NOTE | 2025-03-12 10:56 | ESPR_ITS ---
Subjective Subjective Interval history: Is a 39-year-old G6 now P216 postop day #2 status post repeat in labor under general anesthesia. Patient had repeat #5. Today she is ambulating around the unit. She was reporting significant abdominal distention and gas. No vomiting. No diarrhea. No fevers. Patient is not hungry secondary to gas pain. She is exclusively bottle feeding her twins. Her preop hemoglobin is 11.2 postop 8.1. Will order another one today. Patient reports minimal vaginal bleeding. The father of the baby is at bedside. Exam Vital Signs Temp Pulse Resp BP Pulse Ox O2 Del Method O2 Flow Rate 98.0 F 80 18 108/74 98 Room Air 4 03/12/25 07:39 03/12/25 07:39 03/12/25 07:39 03/12/25 07:39 03/12/25 07:39 03/12/25 07:39 03/10/25 10:45 Narrative Exam Abdomen distended tympanitic hard to feel fundus. It is soft. Distended. Incision clean dry and intact Extremities show 3-4+ pitting edema of her ankles bilaterally Objective Labs 03/12/25 08:15 Labs: Laboratory Results - last 24 hr 03/12/25 08:15 WBC 10.4 RBC 3.33 L Hgb 8.1 L Hct 25.4 L MCV 76 L MCH 24.3 L MCHC 31.9 RDW Std Deviation 65.5 H Plt Count 172 D Neut % (Auto) 84 H Lymph % (Auto) 9 L [place] % (Auto) 7 Eos % (Auto) 0 Baso % (Auto) 0 Neut # (Auto) 8.7 H Lymph # (Auto) 0.9 L [place] # (Auto) 0.7 Eos # (Auto) 0.0 Baso # (Auto) 0.0 Immature Gran # (Auto) 0.06 H Absolute Nucleated RBC 0.00 Immature Gran % 1 H Nucleated RBC % 0 Assessment & Plan Problem List (1) Previous section: Problem details: Previous x 4, patient now postop day #2 status post emergent repeat C- section #5 under general anesthesia. Possible early ileus. At this point we will treat with Dulcolax suppositories. Backed the patient back down to clear liquid diet. For his significant pedal edema ordered Lasix 20 twice daily. Repeat CBC today and tomorrow. Status: Acute (2) Advanced maternal age (AMA) in : Problem details: Status post normal NIPT and level 2 ultrasound Status: Acute (3) Twin : Problem details: Natural Di Di twins Status: Acute (4) : Status: Acute (5) Premature rupture of membranes (PROM) affecting sixth : Problem details: For emergent repeat Status: Acute (6) Grand multiparity in labor and delivery: Problem details: Desires bilateral tubal ligation. Papers signed and on the chart. Status: Acute Time Spent With Patient Time: Total time spent is greater than 50% in coordination of care (as documented) at patient's floor/unit and/or counseling patient:
[2025-03-12 12:00] VITALS: BP 124/73; PULSE 74; RESP 17; TEMP 36.7; O2SAT 97
[2025-03-12 12:08] VITALS: BP 124/73; PULSE 74
[2025-03-12] MEDS: Furosemide 20 MG TABLET PO ×2 (12:08→17:30)
[2025-03-12] MEDS: bisacodyL 10 MG SUPP PR (12:12)
[2025-03-12 17:30] VITALS: BP 125/81; PULSE 89
[2025-03-12 22:18] VITALS: BP 128/76; PULSE 84; RESP 18; TEMP 36.6; O2SAT 98
[2025-03-13] VITALS (14 sets, daily range): BP systolic 115–133; BP diastolic 76–85; PULSE 62–90; RESP 16–18; TEMP 36.5–36.8; O2SAT 97–99
[2025-03-13] MEDS: IBUPROFEN TAB 400 MG TABLET 800 MG PO ×3 (00:56→19:46)
[2025-03-13] MEDS: SIMETHICONE 80 MG CHEW PO ×2 (00:56→10:21)
--- NOTE | 2025-03-13 01:47 | PC.NURSE ---
RN educating pt on side effect of [place]- constipation pt aware and still requesting norco for pain medication at this time, pt having minimal flatus and has not been able to stool, pt stomach palpated and distention noted.
[2025-03-13 05:08] LABS: Basophils % (Auto) 0 % (0-2.5); Eosinophils % (Auto) 0 % (0-10); Hematocrit 24.1 % (36.0-46.0); Immature Granulocytes % (Auto) 1 % (0-0); Immature Granulocytes Auto 0.06 Thou/mm3 (0.00-0.00); Lymphocytes # (Auto) 1.3 Thou/mm3 (1.0-4.8); Lymphocytes % (Auto) 15 % (10-50); Mean Corpuscular HGB Conc 31.1 g/dl (31.0-37.0); Mean Corpuscular Hemoglobin 24.4 pg (25.0-35.0); Mean Corpuscular Volume 78 fL (80-100); Monocytes # (Auto) 0.7 Thou/mm3 (0.0-0.8); Monocytes % (Auto) 7 % (0-12); Neutrophils # (Auto) 6.9 Thou/mm3 (1.8-7.7); Neutrophils % (Auto) 77 % (37-80); Nucleated Red Blood Cell % 0 /100 WBC (0); Platelet Count 150 Thou/mm3 (140-440); RDW Standard Deviation 66.1 fL (36.4-46.3); Red Blood Count 3.08 Miln/mm3 (4.00-5.20)
[2025-03-13 05:09] LABS: Hemoglobin 7.5 g/dL (12.0-16.0)
[2025-03-13] MEDS: Furosemide 20 MG TABLET PO ×2 (05:59→17:53)
--- NOTE | 2025-03-13 09:39 | ESPR_ITS ---
Subjective Subjective Interval history: The patient is a 39-year-old day #3 status post repeat #5 in labor for twins. The patient went under general anesthesia. She is still progressing slowly. Her bowels are still not acting normally. She is still distended. She had a small bowel movement and is passing flatus and tolerating a general diet but moving quite slow. Her legs are quite swollen and I did give her Lasix and this has not improved greatly. Patient's hemoglobin on admission was 11.2 and today her hemoglobin is down to 7.5. The patient has a long-term problem with anemia and in her hemoglobin was about 9. She is amendable to 2 units of packed red blood cells today. Will continue to work on bowel function and hopefully the patient will be discharged tomorrow. The twins are in the room with her as is her significant other. Patient is exclusively bottlefeeding. Exam Vital Signs Temp Pulse Resp BP Pulse Ox O2 Del Method O2 Flow Rate 97.9 F 62 18 130/78 98 Room Air 4 03/13/25 07:06 03/13/25 07:06 03/13/25 07:06 03/13/25 07:06 03/13/25 07:06 03/13/25 07:06 03/10/25 10:45 Narrative Exam Patient appears tired and pale otherwise she is alert and oriented x 3 sitting they are holding one of the babies in a chair. Her has the other baby. Fundus is firm abdomen is distended incision is clean dry and intact extremities show 3+ pitting edema to her ankles. Objective Labs 03/13/25 04:55 Labs: Laboratory Results - last 24 hr 03/10/25 03/13/25 03/13/25 06:50 04:55 09:15 WBC 9.0 RBC 3.08 L Hgb 7.5 L Hct 24.1 L MCV 78 L MCH 24.4 L MCHC 31.1 RDW Std Deviation 66.1 H Plt Count 150 Neut % (Auto) 77 Lymph % (Auto) 15 [place] % (Auto) 7 Eos % (Auto) 0 Baso % (Auto) 0 Neut # (Auto) 6.9 Lymph # (Auto) 1.3 [place] # (Auto) 0.7 Eos # (Auto) 0.0 Baso # (Auto) 0.0 Immature Gran # (Auto) 0.06 H Absolute Nucleated RBC 0.00 Immature Gran % 1 H Nucleated RBC % 0 Crossmatch See Detail See Detail Assessment & Plan Problem List (1) Previous section: Problem details: Previous x 4, patient now postop day #3 status post emergent repeat C- section #5 under general anesthesia. Her bowel function has returned but quite slowly. She is still quite distended. For her significant pedal edema ordered I Lasix 20 twice daily. Status: Acute (2) Advanced maternal age (AMA) in : Problem details: Status post normal NIPT and level 2 ultrasound Status: Acute (3) Twin : Problem details: Natural Di Di twins Status: Acute (4) : Status: Acute (5) Premature rupture of membranes (PROM) affecting sixth : Problem details: For emergent repeat Status: Acute (6) Grand multiparity in labor and delivery: Problem details: Desires bilateral tubal ligation. Papers signed and on the chart. Status: Acute (7) Anemia affecting fifth : Problem details: Hgb on admission 11.2 now down to 7.5. Will transfuse 2 units packed red blood cells. Check CBC in the morning Status: Acute Time Spent With Patient Time: Total time spent is greater than 50% in coordination of care (as documented) at patient's floor/unit and/or counseling patient: Time with patient: less than 15 minutes
[2025-03-13] MEDS: Milk Of Magnesia Susp 30 ML UDC PO (10:21)
[2025-03-13 22:24] LABS: Basophils % (Auto) 0 % (0-2.5); Eosinophils % (Auto) 0 % (0-10); Hematocrit 31.8 % (36.0-46.0); Hemoglobin 10.5 g/dL (12.0-16.0); Immature Granulocytes % (Auto) 1 % (0-0); Immature Granulocytes Auto 0.04 Thou/mm3 (0.00-0.00); Lymphocytes # (Auto) 1.1 Thou/mm3 (1.0-4.8); Lymphocytes % (Auto) 15 % (10-50); Mean Corpuscular Hemoglobin 25.4 pg (25.0-35.0); Mean Corpuscular Volume 77 fL (80-100); Monocytes # (Auto) 0.6 Thou/mm3 (0.0-0.8); Monocytes % (Auto) 7 % (0-12); Neutrophils # (Auto) 6.1 Thou/mm3 (1.8-7.7); Neutrophils % (Auto) 77 % (37-80); Nucleated Red Blood Cell % 0 /100 WBC (0); Platelet Count 204 Thou/mm3 (140-440); RDW Standard Deviation 62.7 fL (36.4-46.3); Red Blood Count 4.14 Miln/mm3 (4.00-5.20); White Blood Count 7.9 Thou/mm3 (3.6-11.0)
[2025-03-14 03:53] VITALS: BP 136/78; PULSE 62; RESP 18; TEMP 36.7
[2025-03-14 05:52] LABS: Basophils % (Auto) 0 % (0-2.5); Eosinophils # (Auto) 0.1 Thou/mm3 (0.0-0.5); Eosinophils % (Auto) 1 % (0-10); Hematocrit 30.2 % (36.0-46.0); Hemoglobin 9.9 g/dL (12.0-16.0); Immature Granulocytes % (Auto) 1 % (0-0); Immature Granulocytes Auto 0.04 Thou/mm3 (0.00-0.00); Lymphocytes # (Auto) 1.1 Thou/mm3 (1.0-4.8); Lymphocytes % (Auto) 17 % (10-50); Mean Corpuscular HGB Conc 32.8 g/dl (31.0-37.0); Mean Corpuscular Hemoglobin 26.1 pg (25.0-35.0); Mean Corpuscular Volume 80 fL (80-100); Monocytes # (Auto) 0.7 Thou/mm3 (0.0-0.8); Monocytes % (Auto) 10 % (0-12); Neutrophils # (Auto) 4.8 Thou/mm3 (1.8-7.7); Neutrophils % (Auto) 72 % (37-80); Nucleated Red Blood Cell % 0 /100 WBC (0); Platelet Count 200 Thou/mm3 (140-440); RDW Standard Deviation 65.2 fL (36.4-46.3); Red Blood Count 3.79 Miln/mm3 (4.00-5.20); White Blood Count 6.8 Thou/mm3 (3.6-11.0)
[2025-03-14 05:55] VITALS: BP 136/78; PULSE 62
[2025-03-14] MEDS: Furosemide 20 MG TABLET PO (05:55)
[2025-03-14 08:00] VITALS: BP 128/78; PULSE 61; RESP 18; TEMP 36.6
--- NOTE | 2025-03-14 11:36 | ESDS_ITS ---
DS: Providers Provider Date of admission: 03/10/25 06:42 Primary care physician: Physician No Primary/Family Admitting Provider: Tori [facility] ([facility]) Attending Provider on Admission: Dominik Flores MD Consults: 03/10/25 09:23 Referral Routine Comment: Attending Provider on DC: Dominik Flores MD Discharging Provider: Dominik Flores MD DS: Diagnosis Problem List Completed Was Problem List Reviewed/Reconciled?: Yes Summary/Hosp Course Brief History: Patient is a 39-year-old -1-1-4 with a known history of twins history of C- section x 4 last 1 with a lot of scar tissue. Patient presented with ruptured membranes at 35 and 1 sevenths weeks and in labor. She is consented for a repeat section. Of note she does desire tubal ligation. Also of note she is consented for possible hysterectomy. Peripartum Data Delivery Method: Low Transverse Episiotomy Description: None Procedures: Procedures Operation Date: 03/10/25 07:45 Actual Procedure Side Surgeon p w/tubal OB Tori James ([facility])MD Time Spent with Patient Time attestation: Total time spent providing and/or coordinating discharge services: Exam Vital Signs Temp Pulse Resp BP Pulse Ox O2 Del Method O2 Flow Rate 97.8 F 61 18 128/78 99 Room Air 4 03/14/25 08:00 03/14/25 08:00 03/14/25 08:00 03/14/25 08:00 03/13/25 18:07 03/14/25 08:00 03/10/25 10:45 Discharge Plan Plan Patient Disposition: HOME (Self Care) Patient condition on transfer: Stable Prescriptions/Referrals Prescriptions/Med Rec: New hydrochlorothiazide 25 mg tablet 25 mg PO QDAY PRN (Reason: swelling) Qty: 7 0RF Continued (DME) comp.stocking,thigh,long,small Misc See Rx Instructions .Route Qty: 12 0RF Rx Instructions: As directed Vitamin 27 mg iron- 800 mcg tablet 1 tab PO QDAY Discontinued valacyclovir [Valtrex] 1 gram tablet 1,000 mg PO QDAY PRN (Reason: outbreak) Qty: 30 0RF Rx Instructions: Take 1 tablet by mouth daily for 5 days at onset of symptoms Referrals: No Primary/Family,Physician [Primary Care Provider] - Patient/Caregiver Discharge Instructions Discharge Activity: activity as tolerated Other Discharge Activity Instructions:: Follow up office 1 week. Education Materials: C Section Dc Print Language: Lithuanian Stand Alone Forms: Radha Award Info., Patient Portal Info Letter Discharge Order Discharge Orders: Discharge (Routine); Ordered 03/14/25 Ordered By: Dominik Flores Planned Discharge Date 03/14/25
--- NOTE | 2025-03-14 12:23 | ESPR_ITS ---
RE: VERONICA FELDMAN : 1985 DATE OF SERVICE: 03/14/2025 SUBJECTIVE: Postoperative day #4, the patient denies any problem or complaints. She is voiding. She is ambulating. She is tolerating diet. She is passing flatus. She denies any excessive vaginal bleeding. She denies any dizziness or lightheadedness. She denies any chest pain, palpitations, shortness of breath, or lower extremity pain. She does have some lower extremity swelling, but it is improved with the Lasix. OBJECTIVE: Vital Signs: Blood pressure 128/78, heart rate 61, respirations 18, temperature 97.8. Lungs: Clear to auscultation bilaterally. Heart: Regular rate and rhythm. Abdomen: Incision clear and intact. Fundus is firm. Mild gaseous distention. Extremities: +2 bilateral lower extremity edema. ASSESSMENT: Postop day #4, status post delivery. PLAN: Discharge home. Discharge instructions given. Follow up in the office in 1 week. DT: 11:36:29 TT: 12:15:00 Ref: [id number] - TID: [id number]
== END 2025-03-14 11:15 | disposition home or self-care (01) | DRG 539 ==
LOC: S4SX 07:19 → S4NX 07:50
PROVIDERS: Admitting Provider Obstetrics & Gynecology; Visit Provider Specialist
PROC: 0UL70ZZ Occlusion of Bilateral Fallopian Tubes, Open Approach (ICD-10-PCS; CPT 59514; principal; 2025-03-10 07:30)
DX: O42.013 Preterm premature rupture of membranes, onset of labor within 24 hours of rupture, third trimester (principal); Z37.2 Twins, both liveborn; O34.211 Maternal care for low transverse scar from previous cesarean delivery; Z30.2 Encounter for sterilization; Z3A.35 35 weeks gestation of pregnancy; O30.043 Twin pregnancy, dichorionic/diamniotic, third trimester; O99.02 Anemia complicating childbirth; O32.2XX2 Maternal care for transverse and oblique lie, fetus 2; O12.04 Gestational edema, complicating childbirth; O72.1 Other immediate postpartum hemorrhage
CPT/HCPCS: 36415; 59025; 59409; 80307; 84112; 85025; 86780; 86850; 86900; 86901; 86923; 94762; A4314; A4649; J0131; J0330; J0689; J1100; J1171; J1885; J2210; J2250; J2270; J2371; J2405; J2590; J2704; J3010; J3490; J7030; J7120; P9016; A9270

== ENCOUNTER 2025-05-02 09:16 | Outpatient (AMB) | payer MEDICAID, SELFPAY ==
[2025-05-02 09:39] VITALS: BP 111/66; PULSE 68; RESP 17; TEMP 36.5; O2SAT 97
--- NOTE | 2025-05-02 09:39 | AMBOBPPN_ITS ---
Vital Signs 05/02/25 09:39 Weight 59.477 kg Weight Measurement Method Standing Scale BP 111/66 Blood Pressure Source Automatic Cuff Blood Pressure Location Right Upper Arm Position Sitting Respiration 17 Pulse 68 Pulse Source Monitor Temp 97.7 F Temp Source Temporal Artery Scan Pulse Oximetry (%) 97 Oxygen Delivery Method Room Air Allergies/Home Meds Allergies & Medications Allergies No Known Allergies Allergy (Verified 05/02/25 09:40) Intake Visit Data Collection New Patient or Established: Established Patient (seen at [facility] within 3 years) Reason for Visit:: Consent obtained for Telemed Visit: No Seen by Clinical Staff ONLY (RN/MA): No Cake Decorator Required: No Do You Feel Safe at Home: Yes Authorities Contacted: N/A PCP or OBGYN visit in last 3 months: Yes Date of Last PCP or OBGYN visit: 03/14/25 Hx Now: No Are you currently on any form of Control: No Pain Present Currently: No Pain Scale Used: Suarez-Moreno/Numerical Pain scale:: 0 Smoking Status Smoking Status: Never smoker CONTACT CENTER PROFESSIONAL: Past Medical History Past Medical History: No Hx Neurological Disorders, No Hx Hypothyroidism, No Hx Hyperthyroidism, No Hx Breast Cancer, No Hx Cardiac Disorders, No Hx Hypertension, No Hx Cancer, Yes Hx Blood Disorders, Yes Hx Anemia, No Hx Gastrointestinal Disorders, No Hx Renal Disease, No Hx Deep Vein Thrombosis, No Hx Diabetes Mellitus Type 1, No Hx Diabetes Mellitus Type 2 and No Hx Polycystic Ovarian Syndrome Questionnaires Covid-19 Vaccine Questionnaire Has patient been vacinated for Covid-19 Have you been vacinated for Covid-19: No Social History Living Situation History Lives With: Family Housing: Apartment Housing Other:: 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 Father the baby is present today. Tobacco History Smoking Status: Never smoker Second Hand Smoke Exposure: Yes Alcohol History Alcohol Intake: Never Substance Use History Substance Use: no Domestic Abuse History Do You Feel Safe at Home: Yes EPDS - PP Depression Screening [facility] Depression Screen I have been able to laugh and see the funny side of things: (0) As much as I always could I have looked forward with enjoyment to things: (0) As much as I ever did I have blamed myself unnecessarily when things went wrong: (0) No, never I have been anxious or worried for no good reason: (0) No, not at all I have felt scared or panicky for no very good reason: (0) No, not at all Things have been getting on top of me: (2) Yes, sometimes I haven't been coping as well as usual I have been so unhappy that I have had difficulty sleeping: (2) Yes, sometimes I have felt sad or miserable: (0) No, not at all I have been so unhappy that I have been crying: (0) No, never The thought of harming myself has occurred to me: (0) Never Care OB Visit Log OB Flowsheet Initial Weight: Not Recorded Date -?-?-?-?-?-?-?-?-?-?-?-?- EGA Weight BP Alb Glu CTX Pres Fundal ht FHR Mov Dilation Station Effacement Hx Notes Visit Note 11/29/24 -?-?-?-?-?-?-?-?-?-?-?-?- 21w 0d 60.328 kg 108/77 140 active 12/31/24 -?-?-?-?-?-?-?-?-?--?-?-?- 25w 4d 65.431 kg 110/77 30 140 active 01/21/25 -?-?-?-?-?-?-?-?-?-?-?-?- 28w 4d 68.946 kg 109/72 32 140 active 02/09/25 -?-?-?-?-?-?-?-?-?-?-?-?- 31w 2d 71.214 kg 108/65 34 130 active 02/23/25 -?-?-?-?-?-?-?--?-?-?-?-?- 33w 2d 72.178 kg 122/82 occasional 37 134 active Di/di twins. Babies both moving. Patient has regu lar contractions no bleeding no loss of fluids. Already had steroids. RODNEY Calculator Estimated Delivery Date Method Current WG Current Estimate 04/11/25 Ultrasound #1 43w 0d Other Estimates 04/12/25 LMP (Certain) 42w 6d Expected Delivery Route/Plan Patient is very high risk. She has a history of x 4 . The last CS re vealed a large amount of scar tissue present and the EBL was 1000 cc. She is this time with twins and it will be #5. Start NSTs at 33 weeks. Schedule at 37 weeks. Specific Issue/Plans Patient signed tubal ligation papers. She will be referred out for all remainder of her care to a high risk physician in [place]. Consult is pending at this time. Notes Visit Date: 01/21/25 Last Updated by: Tori James ([facility])MD Seen in [facility] recently with back pain. FFN negative. VERY HIGH RISK AND I HAVE BEEN TRYING TO SEND TO AN [facility] FOR TRANSFER OF CARE. DR RESENDIZ SAW PT AT 28 WEEKS ANDUS REPORT WNL 01/19/25. Visit Date: 12/31/24 Last Updated by: Tori James ([facility])MD Patient has a twin Di amniotic suspected dichorionic . Its na tural twins. They are both moving well. Both have heartbeats today. They are both in a breech presentation. Patient has severe varicosities of her right lower extremity with pain. I will order a compression stocking for her right leg. Patient is still waiting on a referral to the [facility] for transfer of care. She has not had an ultrasound yet as there was a problem with her Medi-Gurpreet. Patient is dated by my 20-week ultrasound. She has no complaints today besides leg swelling and pain due to varicosities. She is off work on bedrest. She is on pelvic rest. She is extremely high risk due to x 4 and twin intrauterine gestation. She did sign tubal ligation papers today and has a copy. HPI Was or delivery considered high risk: Yes Delivery type: Was labor induced: no Gestational age at delivery (weeks): 35 Delivery date: 03/10/25 Delivering provider: Dr Aniya James Delivery complications: No Is patient infant: No Is patient sexually active: No Contraception planned: Patient had a tubal ligation during her section Review of Systems Review of Systems ROS limited to current [facility]TACT CENTER PROFESSIONAL complaints: Yes Narrative Review of Systems: Patient is exhausted. She presents with the father of the baby and both twins. They are about 7 weeks old. Both boys. She named 1 Attila and she named the other 1 Yvan. It was her fifth . She had her tubes tied during her procedure. She is bottlefeeding. She denies heavy bleeding fevers chills nausea or vomiting she is going back to work 05/06/2025 she cannot her bonding time yet because she has not been employed at this job long enough. Exam Narrative Physical exam: Patient appears pale and tired. Remainder of physical exam deferred as patient is due for an annual exam. Her incision was examined and it is clean dry and intact. Her fundus is below her pelvic bone not palpable abdominally. Her incisions her left abdomen is soft and nontender. General General Appearance: alert and cooperative Office Procedures OB Clinic LOC & Office Proc's Nursing/Assessment Patient Status: Established Patient OB Clinic Nursing Assessment: Medication Reconciliation, Update PMH in EMR and Vital Signs OB Clinic Coordination of Care: Complex Care and Chronic Disease 1-5, Consent,records obtained, informed consent, Education Simp Pt/Fam and 4+ Authorizations needed Established Patient Charge Established Patient Point Assignment: 100 Post Follow-up Visit Post Follow up Visit: Yes Assessment & Plan Diagnosis / Problem List (1) care following delivery: Status: Acute Assessment and Plan: Patient can go back to normal activity including intercourse and exercise she can swim. She does need a Pap smear and annual exam and this was rescheduled for approximately 2 weeks release for work given for May 06, 2025. All questions were answered. She does not exhibit any signs of depression and denies any depression today. Care Reviewed delivery summary and any complications: Yes Uterus involuted to: 6 weeks size Perineal / incision healing noted: Yes Screened for depression: Yes Depression counseling provided: No Discussed family planning & contraception: No Contraception planned: Patient had a tubal ligation during her section Counseling on safe resumption of sexual activity: Yes Counseling on gradual excercise: Yes Discussed and concerns (describe), provided support: No Referred to excellence specialist: No Counseled on good nutrition, hydration, and self care: Yes Reviewed vaccine status: No Infant care discussed; questions answered: feeding and sleep Additional counseling & anticipatory guidance provided: Return in 2 weeks for an annual exam and breast exam. Patient has not had a Pap in 3 years.
== END 2025-05-02 10:10 | disposition home or self-care (01) ==
LOC: HODSOBC 09:16
PROVIDERS: Supervising Provider Obstetrics & Gynecology; Visit Provider Obstetrics & Gynecology
DX: Z39.2 Encounter for routine postpartum follow-up (principal)